=== PATIENT | female | born 1930 | race Caucasian/White ===

== ENCOUNTER 2017-05-21 09:08 | Emergency (ER) | payer OTHER ==
--- NOTE | 2017-05-21 09:12 | PDOC ---
History of Present Illness - General Chief Complaint: Injury Stated Complaint: FALL LACERATION TO RIGHT FOREHEAD SKIN TEAR - History of Present Illness Initial Comments: 05/21/17 09:48 87yo female with mechanical fall in the bathroom. Pt states she was getting up from the toilet, only using a cane, when she slipped on the floor. She was not using her walker and was not wearing socks and shoes. States she hit her head and her R elbow on the cabinet. States she did not have LOC. Pt with R wrist and R elbow pain. Pt with 3cm laceration without active bleeding to the R forehead. Pt denies neck or back pain. Denies cp/sob/n/v/d. No palpitations/ lightheaded or dizziness. Pt at baseline MS. Laguerre states the fall happened this AM. Tetanus vaccines is not UTD. Pt ambulated with her walker into the ED. PMHx: varicose veins, venous stasis, htn, dvt, hld Social: lives at home with daughter and granddaughter, has home health aide on /, no tobacco, etoh, drugs allergies: nkda 05/21/17 09:52 Past History - Past Medical History Allergies/Adverse Reactions: Allergies Allergy/AdvReac Type Severity Reaction Status Date / Time No Known Allergies Allergy Verified 05/21/17 09:10 Home Medications: Ambulatory Orders Aspirin [Aspir 81] 81 mg PO Q2D 07/09/12 Spironolactone 25 mg PO DAILY tablet 03/22/16 Oxybutynin Chloride [Oxybutynin Chloride ER] 5 mg PO DAILY 05/21/17 Anemia: No Asthma: No Cancer: No Cardiac Disorders: No CVA: No COPD: No CHF: No DVT: Yes Dementia: No Diabetes: No GI Disorders: No Disorders: No HTN: Yes Hypercholesterolemia: Yes Liver Disease: No Seizures: No Thyroid Disease: No - Surgical History Abdominal Surgery: No Appendectomy: Yes Cardiac Surgery: No Cholecystectomy: No Lung Surgery: No Neurologic Surgery: No Orthopedic Surgery: No - Suicide/Smoking/Psychosocial Hx Smoking History: Never smoked Cigars Per Day: 0 Hx Alcohol Use: No Drug/Substance Use Hx: No Substance Use Type: None Hx Substance Use Treatment: No Review of Systems - Review of Systems Able to Perform ROS?: Yes Is the patient limited Armenian proficient: No Constitutional: No: Chills, Fever HEENTM: No: Eye Pain, Blurred Vision, Nose Pain, Throat Pain Respiratory: No: Cough, Shortness of Breath Cardiac (ROS): No: Chest Pain, Irregular Heart Rate, Lightheadedness, Palpitations, Syncope, Chest Tightness ABD/GI: No: Diarrhea, Nausea, Vomiting : No: Burning, Dysuria Musculoskeletal: Yes: Joint Pain. No: Back Pain, Neck Pain Integumentary: Yes: Other (skin tear to R elbow, laceration to R forehead) Neurological: Yes: Unsteady Gait. No: Headache, Numbness, Paresthesia, Tingling , Weakness, Ataxia, Dizziness All Other Systems: Reviewed and Negative *Physical Exam - Vital Signs 05/21/17 09:54 Selected Entries 05/21/17 09:10 Temperature 97.6 F Pulse Rate 79 Respiratory 18 Rate Blood Pressure 146/72 O2 Sat by Pulse 98 Oximetry (%) Weight 53.524 kg - Physical Exam General Appearance: Yes: Nourished, Appropriately Dressed, Obese. No: Apparent Distress HEENT: positive: EOMI, HERIBERTO, Normal ENT Inspection. negative: Nasal Congestion , Rhinorrhea Neck: positive: Trachea midline, Supple. negative: Tender, Rigid, Decreased range of motion, Tender lateral, Tender midline Respiratory/Chest: positive: Lungs Clear, Normal Breath Sounds. negative: Chest Tender, Respiratory Distress Cardiovascular: positive: Regular Rhythm, Regular Rate, S1, S2 Gastrointestinal/Abdominal: positive: Normal Bowel Sounds, Soft. negative: Tender, Guarding, Rebound, Tenderness Musculoskeletal: negative: Decreased Range of Motion, Vertebral Tenderness Extremity: positive: Normal Capillary Refill, Normal Range of Motion, Pedal Edema, Swelling, Other (skin tear to R elbow, ttp over distal r radius, ecchymosis to distal r radius, FROM of wrist, no ttp over snuff box, radial pulses intact b/l, muscle strength 5/5 UE and LE, ambulates with her walker in the ed) Integumentary: positive: Normal Color, Dry, Warm, Other (laceration to R forehead ~3cm in length, skin tear to R elbow, ecchymosis to wrist over distal radius) Neurologic: positive: office electrician II-XII NML intact, Fully Oriented, Alert, Normal Response, Motor Strength 5/5. negative: EOM Palsy, Facial Droop, Numbness, Sensory Deficit Procedures - Bedside Ultrasound Bedside Ultrasound: Focused Assessment w/Sonography for Trauma Remarks: 05/21/17 09:57 No intraabd ff or pericardial effusion Heart Score/ECG Review - ECG Intrepretation Comment:: 05/21/17 11:13 sinus at 71, nl axis, nl interval, poor r wave progression, q waves septally that are age indeterminate, no acute st/t wave findings ED Treatment Course - LABORATORY CBC & Chemistry Diagram: 05/21/17 11:25 05/21/17 11:25 Medical Decision Making - Medical Decision Making 05/21/17 09:19 a/p: 87yo female on asa with closed head injury -no loc -neuro intact -will do bedside fast -mechanical slip and fall -will need laceration repair -will obtain xrays of elbow and wrist -head ct given asa use -will monitor and reassess 05/21/17 10:15 pt returned from imaging will repair laceration and pending radiology read of ct head and xrays 05/21/17 10:59 called by the radiologist - pt with small poss acute hemorrhage to the fissure discussed radiologist findings with the patient and her family - will need neurosurgical eval and neurology eval. family requests transfer to [facility]. call placed to [facility] transfer center. 05/21/17 11:13 pt does take asa qod - last took it sunday05/21/17 12:00 case discussed with neurosurg resident Maxwell who accepts pt in transfer to the ED under Dr. Stanley. Family updated transfer forms completed stable at the time of transfer [facility] arranging transportation 05/21/17 12:07 case discussed with the ED attending at [facility] - who will accept the patient in transfer pending DR. Stanley eval from neurosx 05/21/17 12:30 [facility]press arrived to transfer the patient. Pt stable at the time of transfer. Discussed all lab and imaging results with [facility] and the patient. *DC/Admit/Observation/Transfer Diagnosis at time of Disposition: Fall, Laceration of forehead, Skin tear, Intracerebral hemorrhage - Discharge Dispostion Disposition: TRANSFER ACUTE CARE/OTHER HOSP Condition at time of disposition: Stable - Referrals - Patient Instructions Printed Discharge Instructions: DI for Laceration Repair, DI for Closed Head Injury - Post Discharge Activity - Transfer to Acute Care Facility Receiving Facility: [facility] Accepting Physician:: Dr. Stanley
[2017-05-21] MEDS ORDERED: DIPHTH,PERTUSS(ACELL),TET 0.5 ML DISP.SYRIN IM ONE (09:19)
[2017-05-21 09:31] VITALS: TEMP 97.6; BMI 22.3
[2017-05-21] MEDS ORDERED: LIDOCAINE HCL 1%, 10 MG/ML (50 mL VIAL) SQ ONE (10:02)
[2017-05-21] MEDS ORDERED: LIDOCAINE HCL 1%, 10 MG/ML (20ML VIAL) ONE (10:03)
[2017-05-21] MEDS ORDERED: SODIUM CHLORIDE 0.9% 1000 ML INFUS.BAG IV ONE (11:02)
[2017-05-21 11:52] LABS: BASO % 0.4 % (0-2.0); EOS % 0.3 % (0-4.5); HEMATOCRIT 37.4 % (32.4-45.2); HEMOGLOBIN 12.2 GM/dl (10.7-15.3); LYMPH % 9.1 % (8-40); MCH 31.4 pg (25.7-33.7); MCHC 32.7 g/dl (32.0-36.0); MEAN CELL VOLUME 95.9 fl (80-96); MEAN PLT VOLUME 9.9 fl (7.5-11.1); MONO % 5.2 % (3.8-10.2); PLATELET COUNT 223 K/MM3 (134-434); RDW 14.6 % (11.6-15.6); WHITE BLOOD COUNT 10.1 K/mm3 (4.0-10.8)
[2017-05-21 12:01] LABS: ALBUMIN 3.4 g/dl (3.5-5.0); ALK PHOS 92 U/L (32-92); ANION GAP 7 (8-16); BILIRUBIN,TOTAL 0.3 mg/dl (0.2-1.0); BLOOD UREA NITROGEN 26 mg/dl (7-18); CALCIUM 9.4 mg/dl (8.4-10.2); CHLORIDE 103 mmol/L (98-107); CO2 24 mmol/L (22-28); CREATININE 1.3 mg/dl (0.6-1.3); GLUCOSE,RANDOM 109 mg/dl (74-106); POTASSIUM 4.6 mmol/L (3.5-5.1); SGOT/AST 22 U/L (10-42); SGPT/ALT 11 U/L (10-40); SODIUM 134 mmol/L (136-145)
[2017-05-21 12:02] LABS: ACTIVATED PTT 21.1 SECONDS (24.0-38.9)
[2017-05-21 12:05] VITALS: BP 133/63; PULSE 70
[2017-05-21 12:07] LABS: INR 1.06 (0.82-1.09); PROTHROMBIN TIME (PATIENT) 11.9 SEC (10.2-13.0)
--- NOTE | 2017-05-21 15:50 | EKG ---
Test Reason : Blood Pressure : / mmHG Vent. Rate : 071 BPM Atrial Rate : 071 BPM P-R Int : 180 ms QRS Dur : 068 ms QT Int : 358 ms P-R-T Axes : 049 -04 022 degrees QTc Int : 389 ms SINUS RHYTHM WITH PREMATURE ATRIAL COMPLEXES LOW VOLTAGE QRS NO PREVIOUS ECGS AVAILABLE Confirmed by KELLY METZ MD ([id number]) on 05/21/2017 3:49:49 PM Referred By: DENISSE AGUILAR Confirmed By:KELLY METZ MD
== END 2017-05-21 12:30 | disposition short-term general hospital (02) ==
LOC: FER 09:08
PROC: 3E0234Z Introduction of Serum, Toxoid and Vaccine into Muscle, Percutaneous Approach (ICD-10-PCS; principal; 2017-05-21)
PROC: 3E0337Z Introduction of Electrolytic and Water Balance Substance into Peripheral Vein, Percutaneous Approach (ICD-10-PCS; 2017-05-21)
PROC: 0HQ1XZZ Repair Face Skin, External Approach (ICD-10-PCS; 2017-05-21)
DX: I61.9 Nontraumatic intracerebral hemorrhage, unspecified (principal); S01.81XA Laceration without foreign body of other part of head, initial encounter; W18.39XA Other fall on same level, initial encounter; Y93.89 Activity, other specified; Y92.002 Bathroom of unspecified non-institutional (private) residence as the place of occurrence of the external cause; I10 Essential (primary) hypertension; Z86.718 Personal history of other venous thrombosis and embolism; Z79.82 Long term (current) use of aspirin; E78.5 Hyperlipidemia, unspecified
CPT/HCPCS: 36415; 70450-TC; 71045-TC; 73070-TC-RT; 73110-TC-RT; 80053; 85025; 85610; 85730; 86850; 86900; 86901; 90715; 93005; 99285-25

== ENCOUNTER 2017-11-17 15:26 | Observation (INO) | payer OTHER ==
[2017-11-17] MEDS ORDERED: SODIUM CHLORIDE 1,000 ML IV SCH (16:00)
--- NOTE | 2017-11-17 16:07 | PDOC ---
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 The patient states she felt nauseous yesterday and had two epsidoes of bilious, " "phlegm-like"" emesis. She states she felt better throughout the day, went to bed feeling well, but woke up around 2:30AM with numbness to her left arm. She states she went to grab her walker to walk to the bathroom, however, felt that her left arm was weaker than her right. She states she went back to sleep but was woken up several times because of persistent numbness and tingling. Pt states that the numbness and weakness have since resolved. However, she notes that she feels her left forearm and wrist is more swollen when compared to her right today. She reports mild pain to the proximal left wrist at the radial aspect. Denies any trauma to the area. She presents with her daughter and her granddaughter (RN from [facility]) for evaluation today. The patient denies chest pain, shortness of breath, headache and dizziness. The patient denies fever, chills, diarrhea and constipation. The patient denies dysuria, frequency, urgency and hematuria. Allergies: NKDA PCP - Dr. Troy Manager Spring: Dr. Bravo" <Allan Ashton - Last Filed: 11/17/17 18:58> - General Chief Complaint: CVA/TIA Stated Complaint: EPISODE OF LEFT ARM TINGLING Time Seen by Provider: 11/17/17 15:28 NIH Stroke Scale - Last Known Well Date/Time & Onset Date Last Known Well: 11/16/17 Time Last Known Well: 22:00 - Initial Evaluation Level of consciousness: Alert Ask patient the month and their age: Answers both correctly Ask patient to open & close eyes; make fist and let go: Obeys both correctly Best gaze (horizontal eye movement): Normal Visual field testing: No visual field loss Facial paresis (Show teeth/raise eyebrows/close eyes tight): Normal symmetrical movement Motor Function: Left Arm: Normal Motor Function: Right Arm: Normal (extends arm 90 (or 45) degrees for 10 seconds without drift Motor Function: Left Leg: Normal (extends leg 30 degrees for 5 seconds without drift) Motor Function: Right Leg: Normal (extends leg 30 degrees for 5 seconds without drift) Limb Ataxia: No ataxia Sensory(Use pinprick test arms,legs,trunk,face/side to side): Normal Best language (Describe picture, name items, read sentences): No Aphasia Dysarthria (read several words): Normal articulation Extinction and Inattention: No abnormality - Total Score NIH Stroke Scale Score: 0 <Allan Ashton - Last Filed: 11/17/17 18:58> Past History <Jacki Gonzales - Last Filed: 11/17/17 17:15> - Past Medical History Anemia: No Asthma: No Cancer: No Cardiac Disorders: No CVA: No COPD: No CHF: No DVT: Yes Dementia: No Diabetes: No GI Disorders: No Disorders: Yes HTN: Yes Hypercholesterolemia: Yes Liver Disease: No Seizures: No Thyroid Disease: No - Surgical History Abdominal Surgery: No Appendectomy: Yes Cardiac Surgery: No Cholecystectomy: No Lung Surgery: No Neurologic Surgery: No Orthopedic Surgery: No - Immunization History Immunization Up to Date: No - Suicide/Smoking/Psychosocial Hx Smoking History: Never smoked Have you smoked in the past 12 months: No Cigars Per Day: 0 Hx Alcohol Use: No Drug/Substance Use Hx: No Substance Use Type: None Hx Substance Use Treatment: No <Allan Ashton - Last Filed: 11/17/17 18:58> - Past Medical History Allergies/Adverse Reactions: Allergies Allergy/AdvReac Type Severity Reaction Status Date / Time No Known Allergies Allergy Verified 11/17/17 15:41 Home Medications: Ambulatory Orders Aspirin [Aspir 81] 81 mg PO TUTH 07/09/12 Spironolactone 25 mg PO DAILY tablet 03/22/16 Escitalopram Oxalate [Lexapro -] 20 mg PO DAILY 11/17/17 Oxybutynin Chloride [Oxybutynin Chloride ER] 10 mg PO DAILY 11/17/17 Simvastatin [Zocor -] 20 mg PO HS 11/17/17 Review of Systems - Review of Systems Comments:: 11/17/17 16:17 """GENERAL/CONSTITUTIONAL: No fever or chills. No weakness. HEAD, EYES, EARS, NOSE AND THROAT: No change in vision. No ear pain or discharge. No sore throat. CARDIOVASCULAR: No chest pain or shortness of breath. RESPIRATORY: No cough, wheezing, or hemoptysis. GASTROINTESTINAL: No nausea, vomiting, diarrhea or constipation. GENITOURINARY: No dysuria, frequency, or change in urination. MUSCULOSKELETAL: (+) left forearm and wrist swelling. No neck or back pain. SKIN: No rash NEUROLOGIC: (+) left arm numbness and weakness. No headache, vertigo, loss of consciousness,. ENDOCRINE: No increased thirst. No abnormal weight change. HEMATOLOGIC/LYMPHATIC: No anemia, easy bleeding, or history of blood clots. ALLERGIC/IMMUNOLOGIC: No hives or skin allergy. """ <Allan Ashton - Last Filed: 11/17/17 18:58> *Physical Exam - Vital Signs Last Vital Signs Temp Pulse Resp BP Pulse Ox 98.6 F 73 18 130/66 95 11/17/17 15:27 11/17/17 15:27 11/17/17 15:27 11/17/17 15:27 11/17/17 15:27 <Jacki Gonzales - Last Filed: 11/17/17 17:15> - Vital Signs Last Vital Signs Temp Pulse Resp BP Pulse Ox 98.6 F 73 18 130/66 95 11/17/17 15:27 11/17/17 15:27 11/17/17 15:27 11/17/17 15:27 11/17/17 15:27 - Physical Exam Comments: 11/17/17 16:17 """GENERAL: Awake, alert, and fully oriented, in no acute distress. HEAD: No signs of trauma EYES: PERRLA, EOMI, sclera anicteric, conjunctiva clear ENT: Auricles normal inspection, hearing grossly normal, nares patent, oropharynx clear without exudates. Moist mucosa NECK: Nontender, no stepoffs, Normal ROM, supple, no lymphadenopathy, JVD, or masses LUNGS: Breath sounds equal, clear to auscultation bilaterally. No wheezes, and no crackles HEART: Regular rate and rhythm, normal S1 and S2, no murmurs, rubs or gallops ABDOMEN: Soft, nontender, normoactive bowel sounds. No guarding, no rebound. No masses EXTREMITIES: + LUE swelling, distal pulses intact, Normal range of motion, No clubbing or cyanosis. No cords, erythema, or tenderness NEUROLOGICAL: Cranial nerves II through XII intact. 5/5 strength and sensation in all extremities, Normal speech, normal gait, normal cerebellar function SKIN: Warm, Dry, normal turgor, no rashes or lesions noted. """ <Allan Ashton - Last Filed: 11/17/17 18:58> ED Treatment Course - LABORATORY CBC & Chemistry Diagram: 11/17/17 16:05 11/17/17 16:05 - ADDITIONAL ORDERS Additional order review: Laboratory Results 11/17/17 11/17/17 16:05 16:05 Sodium 129 L Potassium 4.0 Chloride 97 L Carbon Dioxide 24 Anion Gap 8 BUN 26 H Creatinine 1.3 Creat Clearance w eGFR 38.84 Random Glucose 94 Calcium 9.1 AST 16 ALT 10 Alkaline Phosphatase 81 Creatine Kinase 22 L Troponin I < 0.03 Total Protein 6.7 Albumin 3.3 L Triglycerides 75 D Cholesterol 107 HDL Cholesterol 39 11/17/17 16:05 RBC 3.79 MCV 92.2 MCHC 33.4 RDW 15.4 MPV 8.7 Neutrophils % 67.6 Lymphocytes % 15.6 Monocytes % 15.2 H Eosinophils % 1.1 Basophils % 0.5 - RADIOLOGY Radiograph Interpretation: 11/17/17 17:15 EXAM#: TYPE/EXAM: RESULT: [id number] CT/HEAD CT (STROKE) HISTORY PROVIDED: Rule out CVA TECHNIQUE: Sequential axial images were obtained from the base of the skull to the vertex. There is no evidence of acute intracranial hemorrhage, mass lesions or infarctions. There is a moderate degree of diffuse cerebral atrophy with sulcal widening and ventricular dilatation. There are hypodense changes within the periventricular white matter consistent with chronic, small vessel ischemia. There is no evidence of fracture or acute bony abnormalities. There is no significant change since a prior study of 06/01/2017. IMPRESSION: No evidence of acute intracranial pathology. Reported By: José Miguel Chavez MD 11/17/17 [id number] <Jacki Gonzales - Last Filed: 11/17/17 17:15> - LABORATORY CBC & Chemistry Diagram: 11/17/17 16:05 11/17/17 16:05 - RADIOLOGY Radiology Studies Ordered: Category Date Time Status HEAD CT (STROKE) [CT] Stat CT Scan 11/17/17 15:52 Ordered DUPLEX VASCUL US-1 ARM [US] Stat Ultrasound 11/17/17 15:52 Ordered <Allan Ashton - Last Filed: 11/17/17 18:58> Medical Decision Making - Critical Care Time Total Critical Care Time (minutes): 45 Critical Care Statement: The care of this patient involved high complexity decision making to prevent further life threatening deterioration of the patient 's condition and/or to evaluate & treat vital organ system(s) failure or risk of failure. - Medical Decision Making 11/17/17 16:02 87 F with L arm numbness and weakness since 2am today. Concerning for possible CVA vs TIA. Pt now neurologically non-focal. NIHSS 0. Pt also with unilateral LUE swelling, concerning for possible DVT, as pt has h/o BLE DVTs no longer on anticoagulation. - Labs - CT head - US LUE - Neuro consult - Likely admit 11/17/17 18:31 CTH unremarkable Labs notable for UTI Ceftriaxone ordered Spoke with Dr. Gray, neuro consult, who recommends MRI and admission Pt admitted to hospitalist. <Allan Ashton - Last Filed: 11/17/17 18:58> *DC/Admit/Observation/Transfer <Jacki Gonzales - Last Filed: 11/17/17 17:15> - Discharge Dispostion Decision to Admit order: Yes - Attestations Physician Attestion: 11/17/17 18:30 I, Dr. Allan Ashton MD, attest that this document has been prepared under my direction and personally reviewed by me in its entirety. I further attest, that it accurately reflects all work, treatment, procedures and medical decision -making performed by me. <Allan Ashton - Last Filed: 11/17/17 18:58> Diagnosis at time of Disposition: Left arm weakness, Left arm numbness, Left arm swelling - Discharge Dispostion Condition at time of disposition: Good - Referrals Referrals: Chase Troy MD [Primary Care Provider] - - Patient Instructions - Post Discharge Activity
[2017-11-17 16:43] LABS: BASO % 0.5 % (0-2.0); EOS % 1.1 % (0-4.5); HEMOGLOBIN 11.7 GM/dl (10.7-15.3); LYMPH % 15.6 % (8-40); MCH 30.8 pg (25.7-33.7); MCHC 33.4 g/dl (32.0-36.0); MEAN CELL VOLUME 92.2 fl (80-96); MEAN PLT VOLUME 8.7 fl (7.5-11.1); MONO % 15.2 % (3.8-10.2); NEUT % 67.6 % (42.8-82.8); PLATELET COUNT 226 K/MM3 (134-434); RBC 3.79 M/mm3 (3.60-5.2); RDW 15.4 % (11.6-15.6); WHITE BLOOD COUNT 7.9 K/mm3 (4.0-10.8)
[2017-11-17 17:09] LABS: ALBUMIN 3.3 g/dl (3.5-5.0); ALK PHOS 81 U/L (32-92); ANION GAP 8 (8-16); BLOOD UREA NITROGEN 26 mg/dl (7-18); CALCIUM 9.1 mg/dl (8.4-10.2); CHLORIDE 97 mmol/L (98-107); CHOLESTEROL 107 mg/dl; CO2 24 mmol/L (22-28); CREATININE 1.3 mg/dl (0.6-1.3); GLUCOSE,RANDOM 94 mg/dl (74-106); HDL CHOLESTEROL 39 mg/dl (29-89); SGOT/AST 16 U/L (10-42); SGPT/ALT 10 U/L (10-40); SODIUM 129 mmol/L (136-145); TOT PROT 6.7 g/dl (6.4-8.3); TRIGLYCERIDES 75 mg/dl (35-160)
[2017-11-17 17:21] LABS: INR 1.13 (0.82-1.09); PROTHROMBIN TIME (PATIENT) 12.6 SEC (10.2-13.0)
[2017-11-17 17:42] LABS: URINE APPEARANCE Slightly; URINE BILIRUBIN Negative (NEGATIVE); URINE COLOR Yellow; URINE GLUCOSE (UA) Negative (NEGATIVE); URINE KETONE Negative (NEGATIVE); URINE LEUK ESTERASE 2+ (NEGATIVE); URINE NITRITE Positive (NEGATIVE); URINE PROTEIN Negative (NEGATIVE); URINE UROBILINOGEN 0.2 (0.2-1.0)
[2017-11-17 18:01] LABS: URINE BACTERIA MANY /hpf (NEGATIVE); URINE WBC 50-80 (0-5)
[2017-11-17 18:14] LABS: BILIRUBIN,TOTAL 0.8 mg/dl (0.2-1.0)
[2017-11-17] MEDS ORDERED: CEFTRIAXONE 1,000 MG in DEXTROSE 5%-WATER - 50 ML IVPB ONE (18:31)
[2017-11-17] MEDS ORDERED: cefTRIAXone SODIUM 1 GM VIAL ONE (19:14)
--- NOTE | 2017-11-17 20:41 | CON.NEURO ---
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 The patient states she felt nauseous yesterday and had two epsidoes of bilious, " "phlegm-like"" emesis, denies vertigo. She states she felt better throughout the day, went to bed feeling well, but woke up around 2:30AM with numbness in her left arm forearm only. She states she went to grab her walker to walk to the bathroom, however, felt that her left arm was weaker than her right, denies weakness now. She states she went back to sleep but was woken up several times because of persistent numbness and tingling. Pt states that the numbness and weakness have since resolved. However, she notes that she feels her left forearm and wrist is more swollen when compared to her right today. She reports mild pain to the proximal left wrist at the radial aspect. Denies any trauma to the area. She presents with her daughter and her granddaughter (RN from [facility]) for evaluation today. The patient denies chest pain, shortness of breath, headache and dizziness. The patient denies fever, chills, diarrhea and constipation. The patient denies dysuria, frequency, urgency and hematuria. + hx of right cerebral hge. in 05/24 after a fall, she has been ambulating with walker since late last year due to unsteady gait. Denies all other neurologic symptoms. - Alcohol/Substance Use Hx Alcohol Use: No - Smoking History Smoking history: Never smoked Have you smoked in the past 12 months: No Home Medications - Allergies Allergies/Adverse Reactions: Allergies Allergy/AdvReac Type Severity Reaction Status Date / Time No Known Allergies Allergy Verified 11/17/17 15:41 - Home Medications Home Medications: Ambulatory Orders Aspirin [Aspir 81] 81 mg PO TUTH 07/09/12 Spironolactone 25 mg PO DAILY tablet 03/22/16 Escitalopram Oxalate [Lexapro -] 20 mg PO DAILY 11/17/17 Oxybutynin Chloride [Oxybutynin Chloride ER] 10 mg PO DAILY 11/17/17 Simvastatin [Zocor -] 20 mg PO HS 11/17/17 Physical Exam-Neuro Vital Signs: Vital Signs Temperature 98.6 F 11/17/17 15:27 Pulse Rate 73 11/17/17 15:27 Respiratory Rate 18 11/17/17 15:27 Blood Pressure 130/66 11/17/17 15:27 O2 Sat by Pulse Oximetry (%) 95 11/17/17 15:27 Labs: CBC, BMP 11/17/17 16:05 11/17/17 16:05 INR, PTT INR 1.13 (0.82-1.09) 11/17/17 16:05 - Neuro Exam Level Of Consciousness: Yes: Alert, Oriented to Person, Oriented to Place, Oriented to Time Eyes: Yes: HERIBERTO Speech: WNL Dominant Hand: Right Mini Mental Exam: Normal DTR's: 1+ Left Tricep, 1+ Right Tricep, 1+ Right Brachioradialis, 2+ Left Bicep , 2+ Right Achilles, 3+ Left Achilles (+left ankle clonus) Imaging - Results Cat Scan: Report Reviewed (Moderate diffuse cerebral atrophy, small amount of diffuse cerebral atrophy) Other: Report Reviewed (UE Doppler-no DVT) Assessment/Plan Pt. with hx. of DVT, gait d/o,now with transient left arm numbness??weakness. Likely right subcortical lacunar ischemic event, no evid. of DVT LUE unclear cause of swelling. She takes ASA every other day, would change to Aggrenox 1 daily for now and obtain MRI brain. If MRI without evid. of ischemic event would look in Cspine as outpt. B12 level. Thank you, Radha Gray MD
[2017-11-17] MEDS ORDERED: ASPIRIN/DIPYRIDAMOLE 25 MG/200 MG CAPSULE (FP) PO ONE (21:00)
[2017-11-17] MEDS ORDERED: ATORVASTATIN CA 10 MG TABLET (FP) PO SCH (22:00)
[2017-11-17 23:20] VITALS: TEMP 97.8; BMI 33.6
[2017-11-17] MEDS ORDERED: ESCITALOPRAM OXALATE 20 MG TABLET (FP) PO ONE (23:45)
[2017-11-17] MEDS ORDERED: ESCITALOPRAM OXALATE 20 MG TABLET (FP) PO SCH (23:45)
[2017-11-17] MEDS ORDERED: OXYBUTYNIN CHLORIDE 5 MG TABLET PO STA (23:55)
[2017-11-18 06:09] VITALS: BP 119/45; PULSE 66
--- NOTE | 2017-11-18 07:44 | HP ---
CHIEF COMPLAINT: PCP: Dr. Troy (PCP), Dr. Suarez (vascular) HISTORY OF PRESENT ILLNESS: ER course was notable for: (1) hmg/hct 10.4/31.3, hyponatremia 132, lipid panel reviewed (2) leuk est +2 (3) Recent Travel: PAST MEDICAL HISTORY: PAST SURGICAL HISTORY: Social History: Smoking: Alcohol: Drugs: Family History: Allergies No Known Allergies Allergy (Verified 11/17/17 15:41) HOME MEDICATIONS: Home Medications Medication Instructions Recorded Aspirin [Aspir 81] 81 mg PO TUTH 07/09/12 Spironolactone 25 mg PO DAILY tablet 03/22/16 Escitalopram Oxalate [Lexapro -] 20 mg PO DAILY 11/17/17 Oxybutynin Chloride [Oxybutynin 10 mg PO DAILY 11/17/17 Chloride ER] Simvastatin [Zocor -] 20 mg PO HS 11/17/17 REVIEW OF SYSTEMS CONSTITUTIONAL: Absent: fever, chills, diaphoresis, generalized weakness, malaise, loss of appetite, weight change HEENT: Absent: rhinorrhea, nasal congestion, throat pain, throat swelling, difficulty swallowing, mouth swelling, ear pain, eye pain, visual changes CARDIOVASCULAR: Absent: chest pain, syncope, palpitations, irregular heart rate, lightheadedness , peripheral edema RESPIRATORY: Absent: cough, shortness of breath, dyspnea with exertion, orthopnea, wheezing, stridor, hemoptysis GASTROINTESTINAL: Absent: abdominal pain, abdominal distension, nausea, vomiting, diarrhea, constipation, melena, hematochezia GENITOURINARY: Absent: dysuria, frequency, urgency, hesitancy, hematuria, flank pain, genital pain MUSCULOSKELETAL: Absent: myalgia, arthralgia, joint swelling, back pain, neck pain SKIN: Absent: rash, itching, pallor HEMATOLOGIC/IMMUNOLOGIC: Absent: easy bleeding, easy bruising, lymphadenopathy, frequent infections ENDOCRINE: Absent: unexplained weight gain, unexplained weight loss, heat intolerance, cold intolerance NEUROLOGIC: Absent: headache, focal weakness or paresthesias, dizziness, unsteady gait, seizure, mental status changes, bladder or bowel incontinence PSYCHIATRIC: Absent: anxiety, depression, suicidal or homicidal ideation, hallucinations. PHYSICAL EXAMINATION Vital Signs - 24 hr 11/17/17 11/17/17 11/18/17 15:27 22:51 06:08 Temperature 98.6 F 97.8 F 97.8 F Pulse Rate 73 72 66 Respiratory 18 18 18 Rate Blood Pressure 130/66 135/55 119/45 O2 Sat by Pulse 95 98 Oximetry (%) GENERAL: Awake, alert, and fully oriented, in no acute distress. HEAD: Normal with no signs of trauma. EYES: Pupils equal, round and reactive to light, extraocular movements intact, sclera anicteric, conjunctiva clear. No lid lag. EARS, NOSE, THROAT: Ears normal, nares patent, oropharynx clear without exudates. Moist mucous membranes. NECK: Normal range of motion, supple without lymphadenopathy, JVD, or masses. LUNGS: Breath sounds equal, clear to auscultation bilaterally. No wheezes, and no crackles. No accessory muscle use. HEART: Regular rate and rhythm, normal S1 and S2 without murmur, rub or gallop. ABDOMEN: Soft, nontender, not distended, normoactive bowel sounds, no guarding, no rebound, no masses. No hepatomegaly or splenomegaly. MUSCULOSKELETAL: Normal range of motion at all joints. No bony deformities or tenderness. No CVA tenderness. UPPER EXTREMITIES: 2+ pulses, warm, well-perfused. No cyanosis. No clubbing. No peripheral edema. LOWER EXTREMITIES: 2+ pulses, warm, well-perfused. No calf tenderness. No peripheral edema. NEUROLOGICAL: Cranial nerves II-XII intact. Normal speech. Normal gait. PSYCHIATRIC: Cooperative. Good eye contact. Appropriate mood and affect. SKIN: Warm, dry, normal turgor, no rashes or lesions noted, normal capillary refill. Laboratory Results - last 24 hr 11/17/17 11/17/17 11/17/17 16:05 16:05 16:05 WBC 7.9 RBC 3.79 Hgb 11.7 Hct 35.0 MCV 92.2 MCH 30.8 MCHC 33.4 RDW 15.4 Plt Count 226 MPV 8.7 Absolute Neuts (auto) 5.4 Neutrophils % 67.6 Lymphocytes % 15.6 Monocytes % 15.2 H Eosinophils % 1.1 Basophils % 0.5 PT with INR 12.6 INR 1.13 Sodium 129 L Potassium 4.0 Chloride 97 L Carbon Dioxide 24 Anion Gap 8 BUN 26 H Creatinine 1.3 Creat Clearance w eGFR 38.84 Random Glucose 94 Calcium 9.1 Total Bilirubin 0.8 AST 16 ALT 10 Alkaline Phosphatase 81 Creatine Kinase 22 L Troponin I Total Protein 6.7 Albumin 3.3 L Triglycerides 75 D Cholesterol 107 Total LDL Cholesterol 53 HDL Cholesterol 39 Urine Color Urine Appearance Urine pH Ur Specific [place] Urine Protein Urine Glucose (UA) Urine Ketones Urine Blood Urine Nitrite Urine Bilirubin Urine Urobilinogen Ur Leukocyte Esterase Urine RBC Urine WBC Ur Epithelial Cells Urine Bacteria Blood Type Antibody Screen 11/17/17 11/17/17 11/17/17 16:05 16:05 17:05 WBC RBC Hgb Hct MCV MCH MCHC RDW Plt Count MPV Absolute Neuts (auto) Neutrophils % Lymphocytes % Monocytes % Eosinophils % Basophils % PT with INR INR Sodium Potassium Chloride Carbon Dioxide Anion Gap BUN Creatinine Creat Clearance w eGFR Random Glucose Calcium Total Bilirubin AST ALT Alkaline Phosphatase Creatine Kinase Troponin I < 0.03 Total Protein Albumin Triglycerides Cholesterol Total LDL Cholesterol HDL Cholesterol Urine Color Yellow Urine Appearance Slightly Urine pH 5.0 Ur Specific [place] <= 1.005 Urine Protein Negative Urine Glucose (UA) Negative Urine Ketones Negative Urine Blood Trace-lysed H Urine Nitrite Positive Urine Bilirubin Negative Urine Urobilinogen 0.2 Ur Leukocyte Esterase 2+ H Urine RBC 3-5 Urine WBC 50-80 Ur Epithelial Cells 3-5 Urine Bacteria Many Blood Type B POSITIVE Antibody Screen Negative ASSESSMENT/PLAN: Hospitalist Screening - Colonoscopy Questionnaire Colonoscopy Questionnaire: Colonoscopy Questionnaire
[2017-11-18 09:49] LABS: HEMATOCRIT 31.3 % (32.4-45.2); HEMOGLOBIN 10.4 GM/dl (10.7-15.3); MCHC 33.3 g/dl (32.0-36.0); MEAN CELL VOLUME 93.1 fl (80-96); PLATELET COUNT 199 K/MM3 (134-434); RBC 3.36 M/mm3 (3.60-5.2); RDW 15.1 % (11.6-15.6); WHITE BLOOD COUNT 7.5 K/mm3 (4.0-10.8)
[2017-11-18] MEDS ORDERED: OXYBUTYNIN CHLORIDE 5 MG TABLET PO SCH ×2 (10:00→22:00)
[2017-11-18] MEDS ORDERED: CEFTRIAXONE 1 GM/50 ML BAG IVPB SCH (10:00)
[2017-11-18] MEDS ORDERED: SPIRONOLACTONE 25 MG TABLET (FP) PO SCH (10:00)
[2017-11-18] MEDS ORDERED: PANTOPRAZOLE 20 MG TABLET (FP) PO SCH (10:00)
[2017-11-18] MEDS ORDERED: ESCITALOPRAM OXALATE 20 MG TABLET (FP) PO SCH ×2 (10:00)
[2017-11-18] MEDS ORDERED: LOSARTAN POTASSIUM 50 MG TABLET (FP) PO SCH (10:00)
[2017-11-18 10:09] LABS: ALBUMIN 2.7 g/dl (3.5-5.0); ALK PHOS 65 U/L (32-92); ANION GAP 4 (8-16); BILIRUBIN,TOTAL 0.8 mg/dl (0.2-1.0); BLOOD UREA NITROGEN 21 mg/dl (7-18); CALCIUM 8.7 mg/dl (8.4-10.2); CHLORIDE 102 mmol/L (98-107); CO2 26 mmol/L (22-28); CREATININE 1.2 mg/dl (0.6-1.3); GLUCOSE,RANDOM 79 mg/dl (74-106); SGOT/AST 13 U/L (10-42); SODIUM 132 mmol/L (136-145); TOT PROT 5.6 g/dl (6.4-8.3)
[2017-11-18 10:59] LABS: SGPT/ALT < 8 U/L (10-40)
--- NOTE | 2017-11-18 14:18 | EKG ---
Test Reason : Blood Pressure : / mmHG Vent. Rate : 061 BPM Atrial Rate : 061 BPM P-R Int : 146 ms QRS Dur : 090 ms QT Int : 408 ms P-R-T Axes : 044 -11 022 degrees QTc Int : 410 ms POOR DATA QUALITY, INTERPRETATION MAY BE ADVERSELY AFFECTED NORMAL SINUS RHYTHM LOW VOLTAGE QRS NONSPECIFIC ST ABNORMALITY ABNORMAL ECG WHEN COMPARED WITH ECG OF 21-MAY-2017 11:10, PREMATURE ATRIAL COMPLEXES ARE NO LONGER PRESENT QUESTIONABLE CHANGE IN QRS DURATION CRITERIA FOR SEPTAL INFARCT ARE NO LONGER PRESENT Confirmed by Tae Saenz ([id number]) on 11/18/2017 2:18:25 PM Referred By: KAT Confirmed By:Tae Saenz
--- NOTE | 2017-11-18 15:26 | PN ---
Progress Note (short form) - Note Progress Note: Pt. reports feeling better, no paresthesias/arm pain. Her exam remains unchanged. MRI brain- without acute abn.+cerebral and cerebellar volume loss, small amount of PVWMD. 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 Cont. Aggrenox 1 tab Mon/Wed/Fri. Plan-d/c home today, will arrange MRI cspine and carotid doppler study as out pt. Pts. daughter will call to set up appt. in my office. Radha Gray MD
--- NOTE | 2017-11-18 15:55 | DS ---
Physical Exam: SUBJECTIVE: Patient seen and examined OBJECTIVE: Vital Signs Period Temp Pulse Resp BP Sys/Smith Pulse Ox Last 24 Hr 97.8 F-97.8 F 66-72 18-18 119-135/45-55 98 PHYSICAL EXAM GENERAL: The patient is awake, alert, and fully oriented, in no acute distress. HEAD: Normal with no signs of trauma. EYES: PERRL, extraocular movements intact, sclera anicteric, conjunctiva clear. ENT: Ears normal, nares patent, oropharynx clear without exudates, moist mucous membranes. NECK: Trachea midline, full range of motion, supple. LUNGS: Breath sounds equal, clear to auscultation bilaterally, no wheezes, no crackles, no accessory muscle use. HEART: Regular rate and rhythm, S1, S2 without murmur, rub or gallop. ABDOMEN: Soft, nontender, nondistended, normoactive bowel sounds, no guarding, no rebound, no hepatosplenomegaly, no masses. EXTREMITIES: 2+ pulses, warm, well-perfused, no edema. NEUROLOGICAL: Cranial nerves II through XII grossly intact. Normal speech, gait not observed. PSYCH: Normal mood, normal affect. SKIN: Warm, dry, normal turgor, no rashes or lesions noted. LABS Laboratory Results - last 24 hr 11/17/17 11/17/17 11/17/17 16:05 16:05 16:05 WBC 7.9 RBC 3.79 Hgb 11.7 Hct 35.0 MCV 92.2 MCH 30.8 MCHC 33.4 RDW 15.4 Plt Count 226 MPV 8.7 Absolute Neuts (auto) 5.4 Neutrophils % 67.6 Lymphocytes % 15.6 Monocytes % 15.2 H Eosinophils % 1.1 Basophils % 0.5 PT with INR 12.6 INR 1.13 Sodium 129 L Potassium 4.0 Chloride 97 L Carbon Dioxide 24 Anion Gap 8 BUN 26 H Creatinine 1.3 Creat Clearance w eGFR 38.84 Random Glucose 94 Calcium 9.1 Total Bilirubin 0.8 AST 16 ALT 10 Alkaline Phosphatase 81 Creatine Kinase 22 L Troponin I Total Protein 6.7 Albumin 3.3 L Triglycerides 75 D Cholesterol 107 Total LDL Cholesterol 53 HDL Cholesterol 39 Urine Color Urine Appearance Urine pH Ur Specific [place] Urine Protein Urine Glucose (UA) Urine Ketones Urine Blood Urine Nitrite Urine Bilirubin Urine Urobilinogen Ur Leukocyte Esterase Urine RBC Urine WBC Ur Epithelial Cells Urine Bacteria Blood Type Antibody Screen 11/17/17 11/17/17 11/17/17 16:05 16:05 17:05 WBC RBC Hgb Hct MCV MCH MCHC RDW Plt Count MPV Absolute Neuts (auto) Neutrophils % Lymphocytes % Monocytes % Eosinophils % Basophils % PT with INR INR Sodium Potassium Chloride Carbon Dioxide Anion Gap BUN Creatinine Creat Clearance w eGFR Random Glucose Calcium Total Bilirubin AST ALT Alkaline Phosphatase Creatine Kinase Troponin I < 0.03 Total Protein Albumin Triglycerides Cholesterol Total LDL Cholesterol HDL Cholesterol Urine Color Yellow Urine Appearance Slightly Urine pH 5.0 Ur Specific [place] <= 1.005 Urine Protein Negative Urine Glucose (UA) Negative Urine Ketones Negative Urine Blood Trace-lysed H Urine Nitrite Positive Urine Bilirubin Negative Urine Urobilinogen 0.2 Ur Leukocyte Esterase 2+ H Urine RBC 3-5 Urine WBC 50-80 Ur Epithelial Cells 3-5 Urine Bacteria Many Blood Type B POSITIVE Antibody Screen Negative 11/18/17 11/18/17 06:10 06:10 WBC 7.5 RBC 3.36 L Hgb 10.4 L Hct 31.3 L MCV 93.1 MCH 31.0 MCHC 33.3 RDW 15.1 Plt Count 199 MPV 9.0 Absolute Neuts (auto) Neutrophils % Lymphocytes % Monocytes % Eosinophils % Basophils % PT with INR INR Sodium 132 L Potassium 4.0 Chloride 102 Carbon Dioxide 26 Anion Gap 4 L BUN 21 H Creatinine 1.2 Creat Clearance w eGFR 42.60 Random Glucose 79 Calcium 8.7 Total Bilirubin 0.8 AST 13 ALT < 8 L D Alkaline Phosphatase 65 D Creatine Kinase Troponin I Total Protein 5.6 L Albumin 2.7 L Triglycerides Cholesterol Total LDL Cholesterol HDL Cholesterol Urine Color Urine Appearance Urine pH Ur Specific [place] Urine Protein Urine Glucose (UA) Urine Ketones Urine Blood Urine Nitrite Urine Bilirubin Urine Urobilinogen Ur Leukocyte Esterase Urine RBC Urine WBC Ur Epithelial Cells Urine Bacteria Blood Type Antibody Screen HOSPITAL COURSE: Date of Admission:11/17/17 Date of Discharge: 11/18/17 Discharge Summary Reason For Visit: MUSCLE WEAKNESS (GENERALIZED),URINARY TRACT INFECT Current Active Problems Left arm numbness (Acute) Left arm swelling (Acute) Left arm weakness (Acute) Condition: Good - Instructions Referrals: Chase Troy MD [Primary Care Provider] - - Home Medications Comprehensive Discharge Medication List: Ambulatory Orders Aspirin [Aspir 81] 81 mg PO TUTH 07/09/12 Spironolactone 25 mg PO DAILY tablet 03/22/16 Escitalopram Oxalate [Lexapro -] 20 mg PO DAILY 11/17/17 Oxybutynin Chloride [Oxybutynin Chloride ER] 10 mg PO DAILY 11/17/17 Simvastatin [Zocor -] 20 mg PO HS 11/17/17
--- NOTE | 2017-11-18 16:11 | DS ---
Physical Exam: SUBJECTIVE: Patient seen and examined OBJECTIVE: Vital Signs Period Temp Pulse Resp BP Sys/Smith Pulse Ox Last 24 Hr 97.8 F-97.8 F 66-72 18-18 119-135/45-55 98 PHYSICAL EXAM GENERAL: The patient is awake, alert, and fully oriented, in no acute distress. HEAD: Normal with no signs of trauma. EYES: PERRL, extraocular movements intact, sclera anicteric, conjunctiva clear. ENT: Ears normal, nares patent, oropharynx clear without exudates, moist mucous membranes. NECK: Trachea midline, full range of motion, supple. LUNGS: Breath sounds equal, clear to auscultation bilaterally, no wheezes, no crackles, no accessory muscle use. HEART: Regular rate and rhythm, S1, S2 without murmur, rub or gallop. ABDOMEN: Soft, nontender, nondistended, normoactive bowel sounds, no guarding, no rebound, no hepatosplenomegaly, no masses. EXTREMITIES: 2+ pulses, warm, well-perfused, no edema. NEUROLOGICAL: Cranial nerves II through XII grossly intact. Normal speech, gait not observed. PSYCH: Normal mood, normal affect. SKIN: Warm, dry, normal turgor, no rashes or lesions noted. LABS Laboratory Results - last 24 hr 11/17/17 11/17/17 11/17/17 16:05 16:05 16:05 WBC 7.9 RBC 3.79 Hgb 11.7 Hct 35.0 MCV 92.2 MCH 30.8 MCHC 33.4 RDW 15.4 Plt Count 226 MPV 8.7 Absolute Neuts (auto) 5.4 Neutrophils % 67.6 Lymphocytes % 15.6 Monocytes % 15.2 H Eosinophils % 1.1 Basophils % 0.5 PT with INR 12.6 INR 1.13 Sodium 129 L Potassium 4.0 Chloride 97 L Carbon Dioxide 24 Anion Gap 8 BUN 26 H Creatinine 1.3 Creat Clearance w eGFR 38.84 Random Glucose 94 Calcium 9.1 Total Bilirubin 0.8 AST 16 ALT 10 Alkaline Phosphatase 81 Creatine Kinase 22 L Troponin I Total Protein 6.7 Albumin 3.3 L Triglycerides 75 D Cholesterol 107 Total LDL Cholesterol 53 HDL Cholesterol 39 Urine Color Urine Appearance Urine pH Ur Specific [place] Urine Protein Urine Glucose (UA) Urine Ketones Urine Blood Urine Nitrite Urine Bilirubin Urine Urobilinogen Ur Leukocyte Esterase Urine RBC Urine WBC Ur Epithelial Cells Urine Bacteria Blood Type Antibody Screen 11/17/17 11/17/17 11/17/17 16:05 16:05 17:05 WBC RBC Hgb Hct MCV MCH MCHC RDW Plt Count MPV Absolute Neuts (auto) Neutrophils % Lymphocytes % Monocytes % Eosinophils % Basophils % PT with INR INR Sodium Potassium Chloride Carbon Dioxide Anion Gap BUN Creatinine Creat Clearance w eGFR Random Glucose Calcium Total Bilirubin AST ALT Alkaline Phosphatase Creatine Kinase Troponin I < 0.03 Total Protein Albumin Triglycerides Cholesterol Total LDL Cholesterol HDL Cholesterol Urine Color Yellow Urine Appearance Slightly Urine pH 5.0 Ur Specific [place] <= 1.005 Urine Protein Negative Urine Glucose (UA) Negative Urine Ketones Negative Urine Blood Trace-lysed H Urine Nitrite Positive Urine Bilirubin Negative Urine Urobilinogen 0.2 Ur Leukocyte Esterase 2+ H Urine RBC 3-5 Urine WBC 50-80 Ur Epithelial Cells 3-5 Urine Bacteria Many Blood Type B POSITIVE Antibody Screen Negative 11/18/17 11/18/17 06:10 06:10 WBC 7.5 RBC 3.36 L Hgb 10.4 L Hct 31.3 L MCV 93.1 MCH 31.0 MCHC 33.3 RDW 15.1 Plt Count 199 MPV 9.0 Absolute Neuts (auto) Neutrophils % Lymphocytes % Monocytes % Eosinophils % Basophils % PT with INR INR Sodium 132 L Potassium 4.0 Chloride 102 Carbon Dioxide 26 Anion Gap 4 L BUN 21 H Creatinine 1.2 Creat Clearance w eGFR 42.60 Random Glucose 79 Calcium 8.7 Total Bilirubin 0.8 AST 13 ALT < 8 L D Alkaline Phosphatase 65 D Creatine Kinase Troponin I Total Protein 5.6 L Albumin 2.7 L Triglycerides Cholesterol Total LDL Cholesterol HDL Cholesterol Urine Color Urine Appearance Urine pH Ur Specific [place] Urine Protein Urine Glucose (UA) Urine Ketones Urine Blood Urine Nitrite Urine Bilirubin Urine Urobilinogen Ur Leukocyte Esterase Urine RBC Urine WBC Ur Epithelial Cells Urine Bacteria Blood Type Antibody Screen HOSPITAL COURSE: Date of Admission:11/17/17 Date of Discharge: 11/18/17 Discharge Summary Reason For Visit: MUSCLE WEAKNESS (GENERALIZED),URINARY TRACT INFECT Current Active Problems Left arm numbness (Acute) Left arm swelling (Acute) Left arm weakness (Acute) Condition: Good - Instructions Diet, Activity, Other Instructions: Saima Joseph: You have been ruled out for a stroke with both a Head CT and Brain MRI. Please follow up with Dr. Gray for left arm numbness and further workup for your left arm discomfort. New Medications: STOP taking the Aspirin and take Aggrenox 1 tablet on Sunday, Wednesdays and Fridays. Aggrenox was given to you on 11/17/2017. Lipitor 10mg daily for prevention of high cholesterol Your urine cultures are pending for any infection or UTI. We will call you if the urine is positive for bacteria. Please call me with any questions that you may have. [facility] [phone] Referrals: Chase Troy MD [Primary Care Provider] - Disposition: HOME - Home Medications Comprehensive Discharge Medication List: Ambulatory Orders Spironolactone 25 mg PO DAILY tablet 03/22/16 Escitalopram Oxalate [Lexapro -] 20 mg PO DAILY 11/17/17 Oxybutynin Chloride [Oxybutynin Chloride ER] 10 mg PO DAILY 11/17/17 Simvastatin [Zocor -] 20 mg PO HS 11/17/17 Aspirin/Dipyridamole [Aggrenox -] 1 combo PO DAILY #30 capsule 11/18/17 Atorvastatin Ca [Lipitor] 10 mg PO HS #30 tablet 11/18/17
[2017-11-20] MEDS ORDERED: ASPIRIN COATED 81 MG TABLET.EC PO SCH (10:00)
== END 2017-11-18 16:30 | disposition home or self-care (01) ==
LOC: FER 15:26 → FM/S 18:30
PROVIDERS: ADMIT Internal Medicine; ATTEND Nurse Practitioner Family
PROC: 3E03329 Introduction of Other Anti-infective into Peripheral Vein, Percutaneous Approach (ICD-10-PCS; principal; 2017-11-17)
PROC: 3E0337Z Introduction of Electrolytic and Water Balance Substance into Peripheral Vein, Percutaneous Approach (ICD-10-PCS; 2017-11-17)
DX: M62.81 Muscle weakness (generalized) (principal); R20.0 Anesthesia of skin; M79.89 Other specified soft tissue disorders; I10 Essential (primary) hypertension; E78.5 Hyperlipidemia, unspecified; Z86.718 Personal history of other venous thrombosis and embolism; Z79.82 Long term (current) use of aspirin
CPT/HCPCS: 36415; 70450-TC; 70551-TC; 71046-TC-FY; 80053; 81003; 81015; 82465; 82550; 83036; 83718; 83721; 84478; 84484; 85025; 85027; 85610; 86850; 86900; 86901; 87086; 87186; 93005; 93971; 99285-25; G0378; J7030

== ENCOUNTER 2019-07-05 19:18 | Inpatient (IN) | payer OTHER ==
[2019-07-05 19:26] VITALS: BMI 28.3
--- NOTE | 2019-07-05 20:07 | PDOC ---
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 Lives at [facility], [place]. Per daughter, was walking after dinner with a walker when after taking a few steps she had increased difficulty breathing, hyperventilation, sat down in her wheelchair, and passed out. No falls. No seizure like activity. No head trauma. No post-ictal state. Reports that she lost consciousness for around 6 seconds when she woke up again. Denies chest pain/dizziness prior to LOC. Denies abdominal pain. Denies dysuria. Reprots b/l LE swelling over the past week. PCP: Dr. Joshua Brown 07/06/19 00:19 Past History - Past Medical History Allergies/Adverse Reactions: Allergies Allergy/AdvReac Type Severity Reaction Status Date / Time No Known Allergies Allergy Verified 11/17/17 15:41 Home Medications: Ambulatory Orders Simvastatin [Zocor -] 20 mg PO HS 11/17/17 Acetaminophen [Tylenol] 650 mg PO QID PRN 07/05/19 Coenzyme Q-10 1 cap PO DAILY 07/05/19 Diclofenac Sodium [Diclofono] 2.5 gm TP Q6H 07/05/19 Duloxetine HCl 60 mg PO DAILY 07/05/19 Folic Acid 1 mg PO DAILY 07/05/19 Furosemide [Lasix -] 20 mg PO DAILY 07/05/19 Guaifenesin [Robitussin -] 10 ml PO QID PRN 07/05/19 Ipratropium/Albuterol Sulfate [Iprat-Albut 0.5-3(2.5) mg/3 ml] 3 ml IH Q4H PRN 07/05/19 Multivitamin 1 tab PO DAILY 07/05/19 Nystatin 100,000 unit PO TID 07/05/19 Ondansetron [Zofran *Odt*] 4 mg PO TID PRN 07/05/19 Oxybutynin Chloride [Oxybutynin Chloride ER] 5 mg PO DAILY 07/05/19 Saccharomyces Boulardii [Florastor] 250 mg PO TID 07/05/19 traMADol HCL [Ultram] 50 mg PO Q6H 07/05/19 Apixaban [Eliquis] 2.5 mg PO BID 07/06/19 Ubidecarenone [Co Q-10] 10 mg PO DAILY 07/06/19 Anemia: No Asthma: No Cancer: No Cardiac Disorders: No CVA: No COPD: No CHF: No DVT: Yes Dementia: No Diabetes: No GI Disorders: No Disorders: Yes (incontinence) HTN: Yes Hypercholesterolemia: Yes Liver Disease: No Seizures: No Thyroid Disease: No - Surgical History Abdominal Surgery: No Appendectomy: Yes Cardiac Surgery: No Cholecystectomy: No Lung Surgery: No Neurologic Surgery: No Orthopedic Surgery: No - Immunization History Immunization Up to Date: No - Psycho Social/Smoking Cessation Hx Smoking History: Never smoked Have you smoked in the past 12 months: No Cigars Per Day: 0 Hx Alcohol Use: No Drug/Substance Use Hx: No Substance Use Type: None Hx Substance Use Treatment: No Cardiac Specific PMH - Complaint Specific PMHX Pacemaker: No Review of Systems - Review of Systems Comments:: GENERAL/CONSTITUTIONAL: No fever or chills. No weakness._ HEAD, EYES, EARS, NOSE AND THROAT: No change in vision. No change in hearing. No sore throat._ CARDIOVASCULAR: No chest pain. Reports shortness of breath/MATHIS. RESPIRATORY: Denies cough, hemoptysis_ GASTROINTESTINAL: No nausea, vomiting, diarrhea or constipation._ GENITOURINARY: No dysuria, frequency, or change in urination._ MUSCULOSKELETAL: Reports bilateral lower extremity swelling. SKIN: No rash_ NEUROLOGIC: Reports LOC. No headache, vertigo, or change in strength/sensation._ ENDOCRINE: No increased thirst. No abnormal weight change_ HEMATOLOGIC/LYMPHATIC: No anemia, easy bleeding. Hx of b/l DVTs. ALLERGIC/IMMUNOLOGIC: No hives or skin allergy._ *Physical Exam - Vital Signs Last Vital Signs Temp Pulse Resp BP Pulse Ox 97.8 F 59 L 20 96/64 97 07/06/19 17:00 07/06/19 17:00 07/06/19 17:00 07/06/19 17:00 07/06/19 14:24 - Physical Exam GENERAL: Awake, alert, and oriented to person/place/time, in no acute distress_ HEAD: No signs of trauma, normocephalic, atraumatic _ EYES: PERRLA, EOMI, sclera anicteric, conjunctiva clear_ ENT: Hearing grossly normal, nares patent, oropharynx clear without exudates. No uvular deviation. Moist mucosa_ NECK: Normal ROM, supple, no lymphadenopathy, JVD, or masses_ LUNGS: No distress, speaks in full sentences, bibasilar crackles present. HEART: Regular rate and rhythm, normal S1 and S2, no murmurs appreciated, peripheral pulses normal and equal bilaterally._ ABDOMEN: Soft, nontender, normoactive bowel sounds. No guarding, no rebound. No masses_ EXTREMITIES: Normal inspection, Normal range of motion, 3+ bilateral lower extremity pitting edema. No clubbing or cyanosis_ NEUROLOGICAL: Cranial nerves II through XII grossly intact. Normal speech, no focal sensorimotor deficits. SKIN: Warm, Dry, normal turgor, no rashes or lesions noted_ ED Treatment Course - LABORATORY CBC & Chemistry Diagram: 07/06/19 05:38 07/06/19 05:38 - ADDITIONAL ORDERS Additional order review: 07/05/19 19:50 RBC 3.60 MCV 91.9 MCHC 32.5 RDW 19.2 H MPV 8.9 Neutrophils % 79.5 Lymphocytes % 12.4 Monocytes % 6.8 Eosinophils % 0.8 Basophils % 0.5 - RADIOLOGY Radiology Studies Ordered: Category Date Time Status HEAD CT WITHOUT CONTRAST [CT] Stat CT Scan 07/05/19 19:58 Completed CHEST X-RAY PORTABLE* [RAD] Stat Radiology 07/05/19 19:58 Completed - Medications Given in the ED: ED Medications Discontinued Medications Generic Name Dose Route Start Last Admin Trade Name Freq PRN Reason Stop Dose Admin Ondansetron HCl 4 mg 07/06/19 10:00 07/06/19 10:00 Zofran - PO Not Given Q8H [facility] Medical Decision Making - Medical Decision Making 07/05/19 20:00 89F hx of HTN, HLD, CHF, 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 -cbc, cmp, bnp, coags -ekg, trop, cxr -ct head -ua, ucx 07/05/19 20:07 EKG shows NSR, 69 bpm, no ST elevation/depression, QTc 435, no axis deviation. No change from prior November 2017. 07/05/19 20:25 Self read of cxr shows large hiatal hernia, cardiomegaly, mild bilateral pleural effusions. 07/05/19 21:21 Labs reviewed. Laboratory Last Values WBC 11.0 K/mm3 (4.0-10.0) H 07/05/19 19:50 RBC 3.60 M/mm3 (3.60-5.2) 07/05/19 19:50 Hgb 10.8 GM/dL (10.7-15.3) 07/05/19 19:50 Hct 33.1 % (32.4-45.2) 07/05/19 19:50 MCV 91.9 fl (80-96) 07/05/19 19:50 MCH 29.9 pg (25.7-33.7) 07/05/19 19:50 MCHC 32.5 g/dl (32.0-36.0) 07/05/19 19:50 RDW 19.2 % (11.6-15.6) H 07/05/19 19:50 Plt Count 257 K/MM3 (134-434) 07/05/19 19:50 MPV 8.9 fl (7.5-11.1) 07/05/19 19:50 Absolute Neuts (auto) 8.7 K/mm3 (1.5-8.0) H 07/05/19 19:50 Neutrophils % 79.5 % (42.8-82.8) 07/05/19 19:50 Lymphocytes % 12.4 % (8-40) 07/05/19 19:50 Monocytes % 6.8 % (3.8-10.2) 07/05/19 19:50 Eosinophils % 0.8 % (0-4.5) 07/05/19 19:50 Basophils % 0.5 % (0-2.0) 07/05/19 19:50 Nucleated RBC % 0 % (0-0) 07/05/19 19:50 PT with INR 14.10 SEC (9.7-13.0) H 07/05/19 19:50 INR 1.19 (0.83-1.09) H 07/05/19 19:50 PTT (Actin FS) 26.3 SECONDS (25.2-36.5) 07/05/19 19:50 Sodium 138 mmol/L (136-145) 07/05/19 19:50 Potassium 4.2 mmol/L (3.5-5.1) 07/05/19 19:50 Chloride 101 mmol/L (98-107) 07/05/19 19:50 Carbon Dioxide 31 mmol/L (21-32) 07/05/19 19:50 Anion Gap 5 MMOL/L (8-16) L 07/05/19 19:50 BUN 17.1 mg/dL (7-18) 07/05/19 19:50 Creatinine 1.0 mg/dL (0.55-1.3) 07/05/19 19:50 Est GFR (CKD-EPI)AfAm 58.25 07/05/19 19:50 Est GFR (CKD-EPI)NonAf 50.26 07/05/19 19:50 Random Glucose 111 mg/dL (74-106) H 07/05/19 19:50 Calcium 8.1 mg/dL (8.5-10.1) L 07/05/19 19:50 Total Bilirubin 0.3 mg/dL (0.2-1) 07/05/19 19:50 AST 16 U/L (15-37) 07/05/19 19:50 ALT 13 U/L (13-61) 07/05/19 19:50 Alkaline Phosphatase 100 U/L (45-117) 07/05/19 19:50 Creatine Kinase 12 U/L (26-192) L 07/05/19 19:50 Troponin I < 0.02 ng/ml (0.00-0.05) 07/05/19 19:50 B-Natriuretic Peptide 707.6 pg/ml (5-450) H 07/05/19 19:50 Total Protein 5.8 g/dl (6.4-8.2) L 07/05/19 19:50 Albumin 2.5 g/dl (3.4-5.0) L 07/05/19 19:50 07/05/19 21:27 UA reviewed. Urine Test Results Urine Color Yellow 07/05/19 21:11 Urine Appearance Cloudy 07/05/19 21:11 Urine pH 6.5 (5.0-8.0) 07/05/19 21:11 Ur Specific [place] 1.011 (1.010-1.035) 07/05/19 21:11 Urine Protein Negative (NEGATIVE) 07/05/19 21:11 Urine Glucose (UA) Negative (NEGATIVE) 07/05/19 21:11 Urine Ketones Negative (NEGATIVE) 07/05/19 21:11 Urine Blood Negative (NEGATIVE) 07/05/19 21:11 Urine Nitrite Negative (NEGATIVE) 07/05/19 21:11 Urine Bilirubin Negative (NEGATIVE) 07/05/19 21:11 Ur Leukocyte Esterase Trace (NEGATIVE) 07/05/19 21:11 07/06/19 00:07 Daughter - Juan: [phone] 07/06/19 00:22 CT head shows no acute intra cranial pathology. D/w Dr. Brown who accepts the patient for admission. Discharge - Discharge Information Problems reviewed: Yes Clinical Impression/Diagnosis: Syncope, CHF exacerbation Condition: Stable - Admission Yes - Follow up/Referral - Patient Discharge Instructions - Post Discharge Activity
--- NOTE | 2019-07-05 20:46 | PDOC ---
Documentation entered by Anna De Dios SCRIBE, acting as scribe for Marilyn Lemos DO. Marilyn Lemos DO: This documentation has been prepared by the Lanre mancia Xhesika, SCRIBE, under my direction and personally reviewed by me in its entirety. I confirm that the documentation accurately reflects all work, treatment, procedures, and medical decision making performed by me. Attending Attestation - Resident Resident Name: Matt Herman - ED Attending Attestation I have performed the following: I have examined & evaluated the patient, The case was reviewed & discussed with the resident, I agree w/resident's findings & plan - HPI HPI: 07/05/19 20:06 The patient is a 89 year old female, with a significant past medical history of HTN, DVT (on eliquis), HLD, and intracerebral hemorrhage s/p fall (May 2017 ) who presents to the emergency department s/p syncopal episode after eating dinner. Daughter denies any seizure activity. The patient denies chest pain or SOB. Denies fever, chills, cough, nausea, vomiting, diarrhea and constipation. Allergies: NKDA - Physicial Exam PE: 07/05/19 20:07 Agree with resident exam. - Medical Decision Making 07/06/19 00:45 89-year-old female status post syncopal episode after some mild shortness of breath CT scan of the brain showed no acute abnormality Will admit for observation
[2019-07-05 20:52] LABS: BASO % 0.5 % (0-2.0); EOS % 0.8 % (0-4.5); HEMATOCRIT 33.1 % (32.4-45.2); HEMOGLOBIN 10.8 GM/dL (10.7-15.3); LYMPH % 12.4 % (8-40); MCH 29.9 pg (25.7-33.7); MCHC 32.5 g/dl (32.0-36.0); MEAN CELL VOLUME 91.9 fl (80-96); MEAN PLT VOLUME 8.9 fl (7.5-11.1); MONO % 6.8 % (3.8-10.2); NEUT % 79.5 % (42.8-82.8); PLATELET COUNT 257 K/MM3 (134-434); RDW 19.2 % (11.6-15.6)
[2019-07-05 21:15] LABS: INR 1.19 (0.83-1.09); PROTHROMBIN TIME (PATIENT) 14.1 SEC (9.7-13.0)
[2019-07-05 21:18] LABS: ACTIVATED PTT 26.3 SECONDS (25.2-36.5)
[2019-07-05 21:19] LABS: ALBUMIN 2.5 g/dl (3.4-5.0); ALK PHOS 100 U/L (45-117); ANION GAP 5 MMOL/L (8-16); BILIRUBIN,TOTAL 0.3 mg/dL (0.2-1); BLOOD UREA NITROGEN 17.1 mg/dL (7-18); CALCIUM 8.1 mg/dL (8.5-10.1); CHLORIDE 101 mmol/L (98-107); CO2 31 mmol/L (21-32); GLUCOSE,RANDOM 111 mg/dL (74-106); POTASSIUM 4.2 mmol/L (3.5-5.1); SGOT/AST 16 U/L (15-37); SGPT/ALT 13 U/L (13-61); SODIUM 138 mmol/L (136-145); TOT PROT 5.8 g/dl (6.4-8.2)
[2019-07-05 21:26] LABS: EPI CELLS 30.6 /HPF (0-5/HPF); HYALINE CASTS 14 /lpf (0-8); PH,URINE 6.5 (5.0-8.0); URINE APPEARANCE CLOUDY; URINE BACTERIA 3.4 /hpf (NEGATIVE); URINE BILIRUBIN NEGATIVE (NEGATIVE); URINE COLOR YELLOW; URINE GLUCOSE (UA) NEGATIVE (NEGATIVE); URINE KETONE NEGATIVE (NEGATIVE); URINE LEUK ESTERASE TRACE (NEGATIVE); URINE NITRITE NEGATIVE (NEGATIVE); URINE PROTEIN NEGATIVE (NEGATIVE); URINE RBC 1 /hpf (0-4); URINE UROBILINOGEN 0.2 mg/dL (0.2-1.0); URINE WBC 5 /hpf (0-5)
[2019-07-06] MEDS ORDERED: guaiFENesin 200 MG/10 ML 10 ML UNIT-DOSE CUPS PO PRN (00:24)
[2019-07-06] MEDS ORDERED: ACETAMINOPHEN 325 MG TABLET (FP) PO PRN (00:24)
[2019-07-06] MEDS ORDERED: ALBUTEROL SO4 2.5/IPRATROPIUM 0.5 INH SOL 3 ML VIAL.NEB. NEB ONE (01:28)
[2019-07-06] MEDS ORDERED: ATORVASTATIN CA 20 MG TABLET (FP) ONE (01:29)
[2019-07-06] MEDS: ATORVASTATIN CA 20 MG TABLET (FP) PO SCH ×2 (02:31→21:41)
[2019-07-06] MEDS: ALBUTEROL SO4 2.5/IPRATROPIUM 0.5 INH SOL 3 ML VIAL.NEB. NEB SCH ×3 (02:31→20:20)
[2019-07-06] MEDS ORDERED: SACCHAROMYCES BOULARDII 250 MG PO SCH (06:00)
[2019-07-06 06:57] LABS: HEMATOCRIT 31.5 % (32.4-45.2); HEMOGLOBIN 10.6 GM/dL (10.7-15.3); MCH 30.8 pg (25.7-33.7); MCHC 33.6 g/dl (32.0-36.0); MEAN CELL VOLUME 91.6 fl (80-96); MEAN PLT VOLUME 8.6 fl (7.5-11.1); PLATELET COUNT 231 K/MM3 (134-434); RBC 3.44 M/mm3 (3.60-5.2); RDW 19.8 % (11.6-15.6); WHITE BLOOD COUNT 10.3 K/mm3 (4.0-10.0)
[2019-07-06] MEDS: NYSTATIN 500,000 UNITS/5 ML SUSPENSION PO SCH ×3 (07:30→21:41)
[2019-07-06 08:04] LABS: ALBUMIN 2.3 g/dl (3.4-5.0); ALK PHOS 96 U/L (45-117); ANION GAP 6 MMOL/L (8-16); BILIRUBIN,TOTAL 0.5 mg/dL (0.2-1); BLOOD UREA NITROGEN 15.6 mg/dL (7-18); CHLORIDE 104 mmol/L (98-107); CO2 30 mmol/L (21-32); CREATININE 0.8 mg/dL (0.55-1.3); GLUCOSE,RANDOM 83 mg/dL (74-106); POTASSIUM 3.5 mmol/L (3.5-5.1); SGOT/AST 18 U/L (15-37); SGPT/ALT 11 U/L (13-61); SODIUM 140 mmol/L (136-145); TOT PROT 5.6 g/dl (6.4-8.2)
[2019-07-06] MEDS: FOLIC ACID 1 MG TABLET (FP) PO SCH (09:05)
[2019-07-06] MEDS: PANTOPRAZOLE 40 MG TABLET PO SCH (09:06)
[2019-07-06] MEDS: MULTIVITAMINS (DAILY MVI) TABLET (FP) PO SCH (09:06)
[2019-07-06] MEDS ORDERED: FUROSEMIDE 20 MG TABLET (FP) PO SCH (10:00)
[2019-07-06] MEDS ORDERED: PATIENT'S OWN MEDICATION (NON-FORMULARY) (Multivitamin 1 TAB) PO SCH (10:00)
[2019-07-06] MEDS ORDERED: ONDANSETRON 4 MG TABLET PO SCH (10:00)
[2019-07-06] MEDS ORDERED: DULoxetine HCL 60 MG CAPSULE.DR PO SCH (10:00)
[2019-07-06] MEDS ORDERED: traMADol HCL 50 MG TABLET PO SCH (10:00)
[2019-07-06] MEDS ORDERED: FUROSEMIDE 40 MG TABLET (FP) ONE (10:01)
[2019-07-06] MEDS: APIXABAN 2.5 MG TABLET PO SCH ×2 (10:15→21:41)
--- NOTE | 2019-07-06 10:46 | CON.CARD ---
Consult Consult Specialty:: Cardiology Referred by:: Dr. Brown Reason for Consultation:: syncope - History of Present Illness Chief Complaint: Fell after getting up to walk History of Present Illness: 89F with hx b/l LE DVTS on Eliquis, dCHF, PHTN, CKD recent admission to [facility] for C.Diff, discharged home 06/29. She lives at [facility] and yesterday had syncopal episode after getting up from wheelchair and taking few steps with daughter. She felt very weak and SOB and then had episode LOC. Daughter witnessed, at bedside. No CP/ no pleuritic pain. No diarrhea/N/V No fevers. Head CT negative TnI negative. 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 No: Ascites, Cancer, Constipation, Crohn's Disease, Diverticulitis, Diverticulosis, Esophageal Varices, Gastritis, GERD, GI Bleed, Hemorrhoids, Hiatal Hernia, Inflamatory Bowel Disease, Irritable Bowel Disease, Pancreatitis, Peptic Ulcer Disease, Ulcerative Colitis Hepatobiliary: Yes: Cholelithiasis Renal/: Yes: Renal Inusuff Reproductive: No: Ectopic , Endometriosis, Fibroids, PID, Polycystic Ovary Syndrome, Postmenopausal, Other Heme/Onc: Yes: Other (DVTS b/l) Infectious Disease: Yes: C-Diff Psych: Yes: Anxiety Musculoskeletal: No: Bursitis, Chronic low back pain, Hemiparesis, Hemiplegia, Osteoarthritis, Paraplegia, Other Rheumatology: No: Fibromyalgia, Gout, Lupus, Rheumatoid Arthritis, Sarcoidosis, Vasculitis, Other ENT: No: Allergic Rhinitis, Sinusitis, Other Endocrine: No: Walter's Disease, Lola's Disease, Diabetes Insipidus, Diabetes Mellitus, Hyperparathyroidism, Hyperthyroidism, Hypothyroidism, Osteopenia, SIADH, Other - Alcohol/Substance Use Hx Alcohol Use: No - Smoking History Smoking history: Former smoker Have you smoked in the past 12 months: No - Social History Usual Living Arrangement: [facility] History of Recent Travel: No Home Medications - Allergies Allergies/Adverse Reactions: Allergies Allergy/AdvReac Type Severity Reaction Status Date / Time No Known Allergies Allergy Verified 11/17/17 15:41 - Home Medications Home Medications: Ambulatory Orders Simvastatin [Zocor -] 20 mg PO HS 11/17/17 Acetaminophen [Tylenol] 650 mg PO QID PRN 07/05/19 Coenzyme Q-10 1 cap PO DAILY 07/05/19 Diclofenac Sodium [Diclofono] 2.5 gm TP Q6H 07/05/19 Duloxetine HCl 60 mg PO DAILY 07/05/19 Folic Acid 1 mg PO DAILY 07/05/19 Furosemide [Lasix -] 20 mg PO DAILY 07/05/19 Guaifenesin [Robitussin -] 10 ml PO QID PRN 07/05/19 Ipratropium/Albuterol Sulfate [Iprat-Albut 0.5-3(2.5) mg/3 ml] 3 ml IH Q4H PRN 07/05/19 Multivitamin 1 tab PO DAILY 07/05/19 Nystatin 100,000 unit PO TID 07/05/19 Ondansetron [Zofran *Odt*] 4 mg PO TID PRN 07/05/19 Oxybutynin Chloride [Oxybutynin Chloride ER] 5 mg PO DAILY 07/05/19 Saccharomyces Boulardii [Florastor] 250 mg PO TID 07/05/19 traMADol HCL [Ultram] 50 mg PO Q6H 07/05/19 Apixaban [Eliquis] 2.5 mg PO BID 07/06/19 Ubidecarenone [Co Q-10] 10 mg PO DAILY 07/06/19 Family Medical History Family History: Unremarkable (not pertinent to this presentation) Review of Systems Findings/Remarks: seee HPI - Review of Systems Constitutional: reports: No Symptoms Eyes: reports: No Symptoms HENT: reports: No Symptoms Neck: reports: No Symptoms Cardiovascular: reports: Edema Respiratory: reports: No Symptoms Gastrointestinal: denies: No Symptoms, Abdominal Pain, Bloating, Constipation, Diarrhea, Dysphagia, Indigestion, Melena, Nausea, Rectal Bleeding, Vomiting, Vomiting Blood, Other Genitourinary: denies: No Symptoms, Burning, Discharge, Dysuria, Flank Pain, Frequency, Hematuria, Incontinence, Lesions, Menses, Pain, Testicular Mass, Testicular Pain, Testicular Swelling, Urgency, Vaginal Bleeding, Other Musculoskeletal: denies: No Symptoms, Back Pain, Crepitus, Decreased ROM, Extremity Pain, Joint Pain, Joint Swelling, Muscle Pain, Muscle Cramps, Muscle Weakness, Other Integumentary: denies: No Symptoms, Blister, Bruising, Change in Color, Eczema, Erythema, Incision, Lesions, Lump, Pallor, Pruritis, Rash, Wound, Other Neurological: reports: Syncope Endocrine: denies: No Symptoms, Excessive Sweating, Flushing, Increased Hunger, Increased Thirst, Intolerance to Cold, Intolerance to Heat, Unexplained Weight Gain, Unexplained Weight Loss, Other Hematology/Lymphatic: denies: No Symptoms, Easily Bruised, Excessive Bleeding, Swollen Glands, Other Psychiatric: denies: No Symptoms, Altered Sleep Pattern, Anxiety, Depression, Hallucinations, Panic, Paranoia, Suicidal, Other - Risk Factors Known Risk Factors: Yes: Age, Smoking Vital Signs: Vital Signs Temperature 98.1 F 07/05/19 19:24 Pulse Rate 70 07/06/19 07:02 Respiratory Rate 20 07/06/19 07:02 Blood Pressure 117/56 L 07/06/19 07:02 O2 Sat by Pulse Oximetry (%) 96 07/06/19 07:02 Constitutional: Yes: No Distress, Calm Eyes: Yes: Conjunctiva Clear Neck: Yes: Supple Respiratory: Yes: Other (scattered rhonchi, no wheezing or rales) Gastrointestinal: Yes: Soft, Abdomen, Obese (NONTENDER) Cardiovascular: Yes: Regular Rate and Rhythm JVD: No Carotid Bruit: No PMI: Non-Displaced Heart Sounds: Yes: S1, S2 Murmur: Yes: Systolic Murmur (2/6 RSB) Edema: Yes Edema: LLE: 2+, RLE: 2+ Neurological: Yes: Alert, Oriented - Other Data Labs, Other Data: CBC, BMP 07/06/19 05:38 07/06/19 05:38 INR, PTT INR 1.19 (0.83-1.09) H 07/05/19 19:50 Troponin, BNP 07/05/19 07/05/19 07/06/19 19:50 19:50 05:38 Troponin I < 0.02 < 0.02 B-Natriuretic Peptide 707.6 H Troponin, BNP 07/05/19 07/05/19 07/06/19 19:50 19:50 05:38 Troponin I < 0.02 < 0.02 B-Natriuretic Peptide 707.6 H see HPI Echo: Pending Imaging - Results Chest X-ray: Image Reviewed Cat Scan: Report Reviewed EKG: Image Reviewed Assessment/Plan IMP: Syncope Recent C. diff Bilateral LE DVTs- chronic Chronic dCHF PHTN CKD Hypoalbuminemia REC: 1. Syncope: -strongly suspect orthostatic drop in BP: recent prolonged diarrheal illness, poor PO intake -Doubt pulmonary embolism as pt on chronic AC/ no hypoxia or tachycardia/ TnI negative. CTA would likely not climate change risk assessor and would potentially compromise kidney function. -Check orthostatics. -May need gentle hydration -Telemetry to r/o arrhythmia -Echo for assessment EF and RVSP 2. Recent C. Diff: -As per PMD -Clinically appears dry (dry oropharynx, BUN also slightly elevated initially) 3. Chronic B/l DVTs: provoked from hospitalizations and immobility -On Eliquis, adjusted for age and GFR. As per daughter, CKD with creatinine fluctuation as high as 1.4/1.5 previously -Currently on reduced dose of 2.5mg BID, will follow trend of GFR and adjust maintenance dose accordingly 4. Chronic diastolic CHF: -BNP here mildly elevated. Does not appear to be clinically volume overloaded. -Suspect the BNP is probably chronically elevated to some degree on basis of chronic diastolic CHF/PHTN and CKD -Would not aggressively diurese, and would consider holding Lasix for 1-2 days as we check orthostatics -Her edema is probably multifactorial and secondary to diastolic dysfx/ possible right sided failure from PHTN and also from hypoalbuminemia and 3rd spacing. 5. PHTN: reported by daughter -Echo to assess as above. 6. CKD: -creat normal now, probably slightly pre-renal 7. Hypoalbuminemia: -Secondary to recent prolonged hospital stay for C. diff, poor PO intake. Contributing to edema -As per PMD
--- NOTE | 2019-07-06 12:08 | EKG ---
Test Reason : Blood Pressure : / mmHG Vent. Rate : 069 BPM Atrial Rate : 069 BPM P-R Int : 162 ms QRS Dur : 094 ms QT Int : 406 ms P-R-T Axes : 066 -29 034 degrees QTc Int : 435 ms POOR DATA QUALITY, INTERPRETATION MAY BE ADVERSELY AFFECTED NORMAL SINUS RHYTHM CANNOT RULE OUT ANTERIOR INFARCT , AGE UNDETERMINED ABNORMAL ECG WHEN COMPARED WITH ECG OF 17-NOV-2017 16:14, NO SIGNIFICANT CHANGE WAS FOUND Confirmed by CARMEN TO MD ([id number]) on 07/06/2019 12:07:33 PM Referred By: Confirmed By:CARMEN TO MD
--- NOTE | 2019-07-06 13:14 | HP ---
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 Daughter denies any seizure activity. The patient denies chest pain or SOB. Denies fever, chills, cough, nausea, vomiting, diarrhea and constipation. 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 No: Ascites, Cancer, Constipation, Crohn's Disease, Diverticulitis, Diverticulosis, Esophageal Varices, Gastritis, GERD, GI Bleed, Hemorrhoids, Hiatal Hernia, Inflamatory Bowel Disease, Irritable Bowel Disease, Pancreatitis, Peptic Ulcer Disease, Ulcerative Colitis Hepatobiliary: Yes: Cholelithiasis Renal/: Yes: Renal Inusuff Heme/Onc: Yes: Other (DVTS b/l) Infectious Disease: Yes: C-Diff Psych: Yes: Anxiety Musculoskeletal: No: Bursitis, Chronic low back pain, Hemiparesis, Hemiplegia, Osteoarthritis, Paraplegia, Other Rheumatology: No: Fibromyalgia, Gout, Lupus, Rheumatoid Arthritis, Sarcoidosis, Vasculitis, Other ENT: No: Allergic Rhinitis, Sinusitis, Other Endocrine: No: Weber's Disease, Watton's Disease, Diabetes Insipidus, Diabetes Mellitus, Hyperparathyroidism, Hyperthyroidism, Hypothyroidism, Osteopenia, SIADH, Other - Smoking History Smoking history: Former smoker Have you smoked in the past 12 months: No - Alcohol/Substance Use Hx Alcohol Use: No History of Substance Use: reports: None - Social History Usual Living Arrangement: Yes: Fpc ADL: Independent History of Recent Travel: No Home Medications - Allergies Allergies/Adverse Reactions: Allergies Allergy/AdvReac Type Severity Reaction Status Date / Time No Known Allergies Allergy Verified 11/17/17 15:41 - Home Medications Home Medications: Ambulatory Orders Simvastatin [Zocor -] 20 mg PO HS 11/17/17 Acetaminophen [Tylenol] 650 mg PO QID PRN 07/05/19 Coenzyme Q-10 1 cap PO DAILY 07/05/19 Diclofenac Sodium [Diclofono] 2.5 gm TP Q6H 07/05/19 Duloxetine HCl 60 mg PO DAILY 07/05/19 Folic Acid 1 mg PO DAILY 07/05/19 Furosemide [Lasix -] 20 mg PO DAILY 07/05/19 Guaifenesin [Robitussin -] 10 ml PO QID PRN 07/05/19 Ipratropium/Albuterol Sulfate [Iprat-Albut 0.5-3(2.5) mg/3 ml] 3 ml IH Q4H PRN 07/05/19 Multivitamin 1 tab PO DAILY 07/05/19 Nystatin 100,000 unit PO TID 07/05/19 Ondansetron [Zofran *Odt*] 4 mg PO TID PRN 07/05/19 Oxybutynin Chloride [Oxybutynin Chloride ER] 5 mg PO DAILY 07/05/19 Saccharomyces Boulardii [Florastor] 250 mg PO TID 07/05/19 traMADol HCL [Ultram] 50 mg PO Q6H 07/05/19 Apixaban [Eliquis] 2.5 mg PO BID 07/06/19 Ubidecarenone [Co Q-10] 10 mg PO DAILY 07/06/19 Family Medical History Family History: Unremarkable Review of Systems - Review of Systems Constitutional: denies: Chills, Fever, Lethargy Eyes: denies: Blind Spots, Blurred Vision, Double Vision HENT: denies: Difficult Swallowing, Ear Pain, Epistaxis Neck: denies: Stiffness, Tenderness Cardiovascular: denies: Chest Pain, Edema, Palpitations, Shortness of Breath Respiratory: denies: Cough, SOB, SOB on Exertion Gastrointestinal: denies: Abdominal Pain, Constipation, Diarrhea, Vomiting, Vomiting Blood Genitourinary: denies: Dysuria Musculoskeletal: denies: Back Pain, Joint Swelling Integumentary: denies: Blister, Bruising, Change in Color, Eczema Neurological: reports: Change in LOC, Dizziness, Syncope, Unsteady Gait, Weakness (general). denies: Change in Speech, Confusion, Headache, Pre- Existing Deficit, Seizure Endocrine: denies: Excessive Sweating, Flushing Hematology/Lymphatic: denies: Easily Bruised, Excessive Bleeding Psychiatric: denies: Altered Sleep Pattern, Anxiety, Depression, Suicidal Physical Examination Vital Signs: Vital Signs Temperature 98.1 F 07/05/19 19:24 Pulse Rate 70 07/06/19 07:02 Respiratory Rate 07/06/19 07:02 Blood Pressure 117/56 L 07/06/19 07:02 O2 Sat by Pulse Oximetry (%) 96 07/06/19 07:02 Constitutional: Yes: No Distress, Calm Eyes: Yes: Conjunctiva Clear HENT: Yes: Atraumatic Neck: Yes: Supple Cardiovascular: No: Regular Rate and Rhythm Respiratory: Yes: CTA Bilaterally Gastrointestinal: Yes: Soft. No: Tenderness Renal/: No: CVA Tenderness - Left, CVA Tenderness - Right, Hematuria Musculoskeletal: No: Joint Stiffness, Joint Swelling Extremities: No: Cold, Cool, Cyanosis Edema: No Integumentary: No: Rash, Venous Stasis Changes Neurological: Yes: Alert, Oriented ...Motor Strength: WNL Psychiatric: Yes: Alert, Oriented. No: Agitated, Suicidal Ideation Labs: CBC, BMP 07/06/19 05:38 07/06/19 05:38 Imaging - Results Chest X-ray: Report Reviewed Other: Report Reviewed Assessment/Plan The patient is a 89 year old female, with a significant past medical history of HTN, DVT (on eliquis), HLD, and intracerebral hemorrhage s/p fall (May 2017 ) who presents to the emergency department s/p syncopal episode after eating dinner. Seen in ER; pt denies any current c/o admit to telemetry falls PFX cardio and neuro eval carotid US; echo, holter further rec. to follow d/w pt and staff
[2019-07-06] MEDS: ONDANSETRON 4 MG TABLET PO SCH ×2 (15:03→21:44)
[2019-07-06] MEDS ORDERED: SODIUM CHLORIDE 1,000 ML IV SCH (15:30)
[2019-07-07] MEDS: ONDANSETRON 4 MG TABLET PO SCH ×3 (05:22→22:18)
[2019-07-07] MEDS: NYSTATIN 500,000 UNITS/5 ML SUSPENSION PO SCH ×3 (05:22→22:14)
[2019-07-07] MEDS ORDERED: traMADol HCL 50 MG TABLET PO PRN (06:43)
[2019-07-07 07:03] LABS: BASO % 0.9 % (0-2.0); EOS % 0.9 % (0-4.5); HEMOGLOBIN 9.4 GM/dL (10.7-15.3); MCH 30.5 pg (25.7-33.7); MCHC 33.6 g/dl (32.0-36.0); MEAN CELL VOLUME 90.8 fl (80-96); MEAN PLT VOLUME 8.9 fl (7.5-11.1); NEUT % 77.2 % (42.8-82.8); PLATELET COUNT 185 K/MM3 (134-434); RBC 3.09 M/mm3 (3.60-5.2); RDW 19.7 % (11.6-15.6)
[2019-07-07 07:48] LABS: ALK PHOS 89 U/L (45-117); ANION GAP 4 MMOL/L (8-16); BILIRUBIN,TOTAL 0.6 mg/dL (0.2-1); BLOOD UREA NITROGEN 12.8 mg/dL (7-18); CHLORIDE 104 mmol/L (98-107); CO2 31 mmol/L (21-32); CREATININE 0.9 mg/dL (0.55-1.3); GLUCOSE,RANDOM 86 mg/dL (74-106); IRON SERUM 43 ug/dL (50-175); POTASSIUM 3.7 mmol/L (3.5-5.1); SGOT/AST 13 U/L (15-37); SGPT/ALT 9 U/L (13-61); SODIUM 139 mmol/L (136-145)
[2019-07-07] MEDS: ALBUTEROL SO4 2.5/IPRATROPIUM 0.5 INH SOL 3 ML VIAL.NEB. NEB SCH ×2 (08:44→20:38)
--- NOTE | 2019-07-07 09:30 | PN ---
Progress Note, Physician Chief Complaint: in bed on 4W no recurrent syncope feels well; occ OA and anxiety consults reviewed and d/w pt - Current Medication List Current Medications: Active Medications Acetaminophen (Tylenol -) 650 mg PO QID PRN PRN Reason: PAIN 1-5 Albuterol/Ipratropium (Duoneb -) 1 amp NEB RBID [facility] Last Admin: 07/07/19 08:44 Dose: 1 amp Apixaban (Eliquis -) 2.5 mg PO BID [facility] Last Admin: 07/06/19 21:41 Dose: 2.5 mg Atorvastatin Calcium (Lipitor -) 20 mg PO HS [facility] Last Admin: 07/06/19 21:41 Dose: 20 mg Duloxetine HCl (Cymbalta -) 60 mg PO DAILY [facility] Folic Acid (Folic Acid -) 1 mg PO DAILY [facility] Last Admin: 07/06/19 09:05 Dose: 1 mg Furosemide (Lasix -) 20 mg PO DAILY [facility] Last Admin: 07/06/19 10:15 Dose: 20 mg Guaifenesin (Robitussin -) 10 ml PO QID PRN PRN Reason: COUGH Sodium Chloride (Normal Saline -) 1,000 mls @ 50 mls/hr IV ASDIR [facility] Stop: 07/07/19 15:29 Last Admin: 07/06/19 16:21 Dose: 50 mls/hr Metoprolol Succinate (Toprol Xl -) 50 mg PO DAILY [facility] Last Admin: 07/06/19 09:06 Dose: 50 mg Multivitamins/Minerals/Vitamin C (Tab-A-Vit -) 1 tab PO DAILY [facility] Last Admin: 07/06/19 09:06 Dose: 1 tab Non-Formulary Medication (Oxybutynin Chloride [Oxybutynin Chloride Er]) 5 mg PO DAILY [facility] Non-Formulary Medication (Saccharomyces Boulardii [Florastor]) 250 mg PO TID [facility] Nystatin (Nystatin Oral Suspension -) 500,000 units PO TID [facility] Last Admin: 07/07/19 05:22 Dose: 500,000 units Ondansetron HCl (Zofran -) 4 mg PO TID [facility] Last Admin: 07/07/19 05:22 Dose: Not Given Pantoprazole Sodium (Protonix -) 40 mg PO DAILY [facility] Last Admin: 07/06/19 09:06 Dose: 40 mg Tramadol HCl (Ultram -) 50 mg PO Q6H PRN PRN Reason: PAIN 6-10 Last Admin: 07/07/19 06:51 Dose: 50 mg - Objective Vital Signs: Vital Signs Temperature 98 F 07/07/19 08:52 Pulse Rate 81 07/07/19 08:52 Respiratory Rate 20 07/07/19 08:52 Blood Pressure 114/57 L 07/07/19 08:52 O2 Sat by Pulse Oximetry (%) 98 07/07/19 08:52 Constitutional: Yes: No Distress, Calm Eyes: Yes: Conjunctiva Clear HENT: Yes: Atraumatic Neck: Yes: Supple Cardiovascular: Yes: Regular Rate and Rhythm Respiratory: Yes: CTA Bilaterally Gastrointestinal: Yes: Soft. No: Tenderness Genitourinary: No: Hematuria Musculoskeletal: No: Joint Stiffness, Joint Swelling Extremities: No: Cold, Cool, Cyanosis Edema: No Integumentary: No: Pressure Ulcer, Rash, Venous Stasis Changes Neurological: Yes: WNL, Alert, Oriented ...Motor Strength: WNL Psychiatric: Yes: WNL, Alert, Oriented. No: Agitated, Suicidal Ideation Labs: CBC, BMP 07/07/19 06:10 07/07/19 06:10 INR, PTT INR 1.19 (0.83-1.09) H 07/05/19 19:50 - ....Imaging Other: Report Reviewed Assessment/Plan The patient is a 89 year old female, with a significant past medical history of HTN, DVT (on eliquis), HLD, and intracerebral hemorrhage s/p fall (May 2017 ) who presents to the emergency department s/p syncopal episode after eating dinner. Seen in ER; pt denies any current c/o monitor in telemetry falls PFX cardio and neuro eval carotid US; echo, holter d/w pt and staff
[2019-07-07] MEDS: MULTIVITAMINS (DAILY MVI) TABLET (FP) PO SCH (09:39)
[2019-07-07] MEDS: PANTOPRAZOLE 40 MG TABLET PO SCH (09:40)
[2019-07-07] MEDS: APIXABAN 2.5 MG TABLET PO SCH ×2 (09:40→22:14)
[2019-07-07] MEDS: DULoxetine HCL 30 MG CAPSULE.DR PO SCH (09:40)
[2019-07-07] MEDS: FOLIC ACID 1 MG TABLET (FP) PO SCH (09:40)
--- NOTE | 2019-07-07 11:21 | PN ---
Progress Note, Physician Chief Complaint: syncope History of Present Illness: denies LH, dizzy, presync incl when standing no signif leg swelling noted no sob no cp, palp - Current Medication List Current Medications: Active Medications Acetaminophen (Tylenol -) 650 mg PO QID PRN PRN Reason: PAIN 1-5 Albuterol/Ipratropium (Duoneb -) 1 amp NEB RBID [facility] Last Admin: 07/07/19 08:44 Dose: 1 amp Apixaban (Eliquis -) 2.5 mg PO BID [facility] Last Admin: 07/07/19 09:40 Dose: 2.5 mg Atorvastatin Calcium (Lipitor -) 20 mg PO HS [facility] Last Admin: 07/06/19 21:41 Dose: 20 mg Duloxetine HCl (Cymbalta -) 60 mg PO DAILY [facility] Last Admin: 07/07/19 09:40 Dose: 60 mg Folic Acid (Folic Acid -) 1 mg PO DAILY [facility] Last Admin: 07/07/19 09:40 Dose: 1 mg Furosemide (Lasix -) 20 mg PO DAILY [facility] Last Admin: 07/06/19 10:15 Dose: 20 mg Guaifenesin (Robitussin -) 10 ml PO QID PRN PRN Reason: COUGH Sodium Chloride (Normal Saline -) 1,000 mls @ 50 mls/hr IV ASDIR [facility] Stop: 07/07/19 15:29 Last Admin: 07/06/19 16:21 Dose: 50 mls/hr Metoprolol Succinate (Toprol Xl -) 50 mg PO DAILY [facility] Last Admin: 07/07/19 09:39 Dose: 50 mg Multivitamins/Minerals/Vitamin C (Tab-A-Vit -) 1 tab PO DAILY [facility] Last Admin: 07/07/19 09:39 Dose: 1 tab Non-Formulary Medication (Oxybutynin Chloride [Oxybutynin Chloride Er]) 5 mg PO DAILY [facility] Non-Formulary Medication (Saccharomyces Boulardii [Florastor]) 250 mg PO TID [facility] Nystatin (Nystatin Oral Suspension -) 500,000 units PO TID [facility] Last Admin: 07/07/19 05:22 Dose: 500,000 units Ondansetron HCl (Zofran -) 4 mg PO TID [facility] Last Admin: 07/07/19 05:22 Dose: Not Given Pantoprazole Sodium (Protonix -) 40 mg PO DAILY [facility] Last Admin: 07/07/19 09:40 Dose: 40 mg Tramadol HCl (Ultram -) 50 mg PO Q6H PRN PRN Reason: PAIN 6-10 Last Admin: 07/07/19 06:51 Dose: 50 mg - Objective Vital Signs: Vital Signs Temperature 98 F 07/07/19 08:52 Pulse Rate 81 07/07/19 08:52 Respiratory Rate 20 07/07/19 08:52 Blood Pressure 114/57 L 07/07/19 08:52 O2 Sat by Pulse Oximetry (%) 98 07/07/19 08:52 Constitutional: Yes: Well Nourished, No Distress, Calm Cardiovascular: Yes: Regular Rate and Rhythm, S1, S2. No: JVD, Gallop, Murmur Respiratory: Yes: Regular, CTA Bilaterally. No: Accessory Muscle Use, Rales Extremities: No: Cold Edema: Yes (mild-mod nonpitting) Neurological: Yes: Alert, Oriented Psychiatric: No: Agitated Labs: CBC, BMP 07/07/19 06:10 07/07/19 06:10 INR, PTT INR 1.19 (0.83-1.09) H 07/05/19 19:50 Assessment/Plan tele: IMP: Syncope Recent C. diff Bilateral LE DVTs- chronic Chronic dCHF PHTN CKD Hypoalbuminemia REC: Syncope: -strongly suspect orthostatic drop in BP: recent prolonged diarrheal illness, poor PO intake, elderly pt on lasix -+ orthostatic BP drop here -hold lasix, cont to monitor orthostatics -rec compression tx for venous insy, vascular surgery f/u (to minimize lasix reqt) -Telemetry to r/o arrhythmia -Echo for assessment EF and RVSP Recent C. Diff: -As per PMD -Clinically appears dry (dry oropharynx, BUN also slightly elevated initially) Chronic B/l DVTs: provoked from hospitalizations and immobility -On Eliquis--note recurrent VTE prevention dose is 2.5 bid--cont same Chronic diastolic CHF, edema -BNP here mildly elevated. Does not appear to be clinically volume overloaded. -Suspect the BNP is probably chronically elevated to some degree on basis of chronic diastolic CHF/PHTN and CKD -clinically euvolemic -Her edema is likely sec to chronic venous ins/post-phlebitic syndrome, ? component of diastolic dysfx/ possible right sided failure from PHTN -holding lasix, as above -if edema cannot be adequately treated with stockings, compression device by vascular, then will likely need trial of midodrine to minimize recurrent orthostatic hypo with syncope PHTN: reported by daughter -Echo to assess as above. Hypoalbuminemia: -Secondary to recent prolonged hospital stay for C. diff, poor PO intake. Contributing to edema -As per PMD D/C TELE
[2019-07-07] MEDS: OXYBUTYNIN CHLORIDE 5 MG TABLET PO SCH (14:32)
[2019-07-07] MEDS ORDERED: PT OWN MED DRAWER 7, Y5N ONE (14:32)
--- NOTE | 2019-07-07 15:09 | ECHO ---
Name: GRICELDA MIKE Exam:Adult Echocardiogram Study Date: 07/07/2019 01:27 PM Age: 89 yrs Reason For Study: SYNCOPE Height: 61 in Weight: 150 lb BSA: 1.7 m2 MMode/2D Measurements & Calculations IVSd: 0.86 cm Ao root diam: 2.3 cm LVIDd: 4.1 cm LA dimension: 3.4 cm LVIDs: 2.9 cm LVPWd: 1.1 cm LVPWs: 1.3 cm EDV(Teich): 73.1 ml ESV(Teich): 32.8 ml LVOT diam: 2.0 cm LAV (MOD-bp): 49.0 ml RV S Carlos: 11.6 cm/sec Doppler Measurements & Calculations MV E max carlos: 52.4 cm/sec Ao V2 max: 231.4 cm/sec MV A max carlos: 84.4 cm/sec Ao max P.4 mmHg MV E/A: 0.62 Ao V2 mean: 161.1 cm/sec Ao mean P.1 mmHg Ao V2 VTI: 58.3 cm JOSE G(I,D): 1.3 cm2 JOSE G(V,D): 1.3 cm2 LV V1 max P.8 mmHg SV(LVOT): 75.4 ml LV V1 mean P.4 mmHg LV V1 max: 98.0 cm/sec LV V1 mean: 72.8 cm/sec LV V1 VTI: 24.1 cm TR max carlos: 255.2 cm/sec PA V2 max: 156.1 cm/sec TR max P.6 mmHg PA max P.3 mmHg Med Peak E' Carlos: 6.4 cm/sec Med E/e': 8.2 Lat Peak E' Carlos: 6.6 cm/sec Lat E/e': 7.9 Procedure Study Quality: Fair. Left Ventricle The left ventricle is normal in size. There is normal left ventricular wall thickness. The left ventr icular ejection fraction is normal. Ejection Fraction = 55-60%. The transmitral spectral Doppler flow patter n is suggestive of impaired LV relaxation. Right Ventricle The right ventricle is moderately dilated. The right ventricular systolic function is moderately redu daisy. Atria Normal left and right atrial size and function. Mitral Valve The mitral valve leaflets appear normal. There is no evidence of stenosis, fluttering, or prolapse. Tricuspid Valve The tricuspid valve is not well visualized, but is grossly normal. There is mild tricuspid regurgitat ion. Right ventricular systolic pressure is normal. Aortic Valve Mildly calcified. Mild valvular aortic stenosis. No aortic regurgitation is present. Pulmonic Valve The pulmonic valve is not well visualized. Great Vessels The aortic root is normal size. Pericardium/Pleura There is no pericardial effusion. Interpretation Summary LV: Normal size,thickness,systolic function, EF 55-60%,impaired relaxation RV: Moderately dilated and hypoklinetic Normal atria sizes AV: Mildly calcified, mild stenosis Mild TR with normal RVSP. Mason Seay 07/07/2019 03:09 PM
--- NOTE | 2019-07-07 18:33 | CON.NEURO ---
Consult Consult Specialty:: Shai Referred by:: PCP Reason for Consultation:: Syncopy - History of Present Illness History of Present Illness: this is a pleasant 89-year-old right-handed female patient with multiple medical problem including coronary artery disease, mild dementia, cardiac arrhythmia, on anticoagulation patient was recently discharged from [facility] after a bout of diarrhea associated with C. difficile. No report of any recent travel patient was at the [facility] seen Tana when she had a syncopal event report of any seizure-like activity no chest pain or palpitation. Patient felt for. CAT scan of the head revealed no evidence of acute pathology patient was stabilized and admitted to the medical floor for further treatment and management. Patient was seen on the floor. 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 No: Ascites, Cancer, Constipation, Crohn's Disease, Diverticulitis, Diverticulosis, Esophageal Varices, Gastritis, GERD, GI Bleed, Hemorrhoids, Hiatal Hernia, Inflamatory Bowel Disease, Irritable Bowel Disease, Pancreatitis, Peptic Ulcer Disease, Ulcerative Colitis Hepatobiliary: Yes: Cholelithiasis Renal/: Yes: Renal Inusuff Infectious Disease: Yes: C-Diff Psych: Yes: Anxiety Musculoskeletal: No: Bursitis, Chronic low back pain, Hemiparesis, Hemiplegia, Osteoarthritis, Paraplegia, Other Rheumatology: No: Fibromyalgia, Gout, Lupus, Rheumatoid Arthritis, Sarcoidosis, Vasculitis, Other ENT: No: Allergic Rhinitis, Sinusitis, Other Endocrine: No: Allyn's Disease, Lola's Disease, Diabetes Insipidus, Diabetes Mellitus, Hyperparathyroidism, Hyperthyroidism, Hypothyroidism, Osteopenia, SIADH, Other - Alcohol/Substance Use Hx Alcohol Use: No - Smoking History Smoking history: Never smoked Have you smoked in the past 12 months: No - Social History Usual Living Arrangement: Group Home History of Recent Travel: No Home Medications - Allergies Allergies/Adverse Reactions: Allergies Allergy/AdvReac Type Severity Reaction Status Date / Time No Known Allergies Allergy Verified 07/14/18 15:41 - Home Medications Home Medications: Ambulatory Orders Simvastatin [Zocor -] 20 mg PO HS 11/17/17 Acetaminophen [Tylenol] 650 mg PO QID PRN 07/05/19 Coenzyme Q-10 1 cap PO DAILY 07/05/19 Diclofenac Sodium [Diclofono] 2.5 gm TP Q6H 07/05/19 Duloxetine HCl 60 mg PO DAILY 07/05/19 Folic Acid 1 mg PO DAILY 07/05/19 Furosemide [Lasix -] 20 mg PO DAILY 07/05/19 Guaifenesin [Robitussin -] 10 ml PO QID PRN 07/05/19 Ipratropium/Albuterol Sulfate [Iprat-Albut 0.5-3(2.5) mg/3 ml] 3 ml IH Q4H PRN 07/05/19 Multivitamin 1 tab PO DAILY 07/05/19 Nystatin 100,000 unit PO TID 07/05/19 Ondansetron [Zofran *Odt*] 4 mg PO TID PRN 07/05/19 Oxybutynin Chloride [Oxybutynin Chloride ER] 5 mg PO DAILY 07/05/19 Saccharomyces Boulardii [Florastor] 250 mg PO TID 07/05/19 traMADol HCL [Ultram] 50 mg PO Q6H 07/05/19 Apixaban [Eliquis] 2.5 mg PO BID 07/06/19 Ubidecarenone [Co Q-10] 10 mg PO DAILY 07/06/19 Family Medical History Family History: Unremarkable Review of Systems - Review of Systems Constitutional: reports: No Symptoms Eyes: reports: No Symptoms Neurological: reports: Headache, Incoordination, Numbness, Parasthesia Physical Exam-Neuro Vital Signs: Vital Signs Temperature 97.7 F 07/07/19 14:00 Pulse Rate 72 07/07/19 14:00 Respiratory Rate 20 07/07/19 14:00 Blood Pressure 108/49 L 07/07/19 14:00 O2 Sat by Pulse Oximetry (%) 98 07/07/19 08:52 Constitutional: Yes: Well Nourished Neck: Yes: WNL Cardiovascular: Yes: WNL Labs: CBC, BMP 07/07/19 06:10 07/07/19 06:10 INR, PTT INR 1.19 (0.83-1.09) H 07/05/19 19:50 - Neuro Exam Level Of Consciousness: Yes: Oriented to Person, Oriented to Place, Oriented to Time Eyes: Yes: PERRLA Speech: WNL Dominant Hand: Right Cranial Nerves II-XII Intact: Yes DTR's: 1+ Left Bicep, 1+ Right Bicep, 1+ Left Tricep, 1+ Right Tricep Response to light touch: Normal Response to pain prick: Normal Response to temperature: Normal Response to vibration: Normal Motor Strength: 3/5: Left Arm, Right Arm, Left Leg, Right Leg Gait: Deferred Imaging - Results Cat Scan: Image Reviewed Problem List - Problems (1) Syncope Code(s): R55 - SYNCOPE AND COLLAPSE Assessment/Plan most probably vasovagal syncope Cannot rule out cardiac arrhythmia 1. The results of the carotid Doppler. 2. Check orthostasis every shift. 3. Baby aspirin. 4. Homocysteine level. 4. No need for MRI. 5. Elastic stockings. Sarah Gibbons M.D., MSc [facility] [address] [place] [address] Office
[2019-07-07] MEDS: ATORVASTATIN CA 20 MG TABLET (FP) PO SCH (22:14)
[2019-07-08] MEDS: NYSTATIN 500,000 UNITS/5 ML SUSPENSION PO SCH ×3 (05:42→22:15)
[2019-07-08] MEDS: ONDANSETRON 4 MG TABLET PO SCH ×3 (05:50→22:17)
[2019-07-08] MEDS: ALBUTEROL SO4 2.5/IPRATROPIUM 0.5 INH SOL 3 ML VIAL.NEB. NEB SCH ×2 (07:41→21:25)
[2019-07-08] MEDS: FOLIC ACID 1 MG TABLET (FP) PO SCH (09:21)
[2019-07-08] MEDS: APIXABAN 2.5 MG TABLET PO SCH ×2 (09:21→22:17)
[2019-07-08] MEDS: PANTOPRAZOLE 40 MG TABLET PO SCH (09:21)
[2019-07-08] MEDS: DULoxetine HCL 30 MG CAPSULE.DR PO SCH (09:21)
[2019-07-08] MEDS: OXYBUTYNIN CHLORIDE 5 MG TABLET PO SCH (09:21)
[2019-07-08] MEDS: MULTIVITAMINS (DAILY MVI) TABLET (FP) PO SCH (09:21)
--- NOTE | 2019-07-08 11:19 | PN ---
Progress Note (short form) - Note Progress Note: s: has not gotten up much, no chest pain, palps, dizziness, dyspnea Current Medications Acetaminophen (Tylenol -) 650 mg PO QID PRN PRN Reason: PAIN 1-5 Albuterol/Ipratropium (Duoneb -) 1 amp NEB RBID [facility] Last Admin: 07/07/19 20:38 Dose: 1 amp Apixaban (Eliquis -) 2.5 mg PO BID [facility] Last Admin: 07/08/19 09:21 Dose: 2.5 mg Atorvastatin Calcium (Lipitor -) 20 mg PO HS [facility] Last Admin: 07/07/19 22:14 Dose: 20 mg Duloxetine HCl (Cymbalta -) 60 mg PO DAILY [facility] Last Admin: 07/08/19 09:21 Dose: 60 mg Folic Acid (Folic Acid -) 1 mg PO DAILY [facility] Last Admin: 07/08/19 09:21 Dose: 1 mg Guaifenesin (Robitussin -) 10 ml PO QID PRN PRN Reason: COUGH Metoprolol Succinate (Toprol Xl -) 50 mg PO DAILY [facility] Last Admin: 07/08/19 09:21 Dose: 50 mg Multivitamins/Minerals/Vitamin C (Tab-A-Vit -) 1 tab PO DAILY [facility] Last Admin: 07/08/19 09:21 Dose: 1 tab Non-Formulary Medication (Saccharomyces Boulardii [Florastor]) 250 mg PO TID [facility] Nystatin (Nystatin Oral Suspension -) 500,000 units PO TID [facility] Last Admin: 07/08/19 05:42 Dose: 500,000 units Ondansetron HCl (Zofran -) 4 mg PO TID [facility] Last Admin: 07/08/19 05:50 Dose: Not Given Oxybutynin Chloride (Ditropan -) 5 mg PO DAILY [facility] Last Admin: 07/08/19 09:21 Dose: 5 mg Pantoprazole Sodium (Protonix -) 40 mg PO DAILY [facility] Last Admin: 07/08/19 09:21 Dose: 40 mg Tramadol HCl (Ultram -) 50 mg PO Q6H PRN PRN Reason: PAIN 6-10 Last Admin: 07/07/19 06:51 Dose: 50 mg Vital Signs Period Temp Pulse Resp BP Sys/Smith Pulse Ox Last 24 Hr 97.7 F-98.8 F 67-115 20-20 102-127/49-61 99-100 Constitutional: Yes: Well Nourished, No Distress, Calm Cardiovascular: Yes: Regular Rate and Rhythm, S1, S2. No: JVD, Gallop, Murmur Respiratory: Yes: Regular, CTA Bilaterally. No: Accessory Muscle Use, Rales Extremities: No: Cold Edema: Yes (mild-mod nonpitting) Neurological: Yes: Alert, Oriented Psychiatric: No: Agitated no jaundice, diaphoresis echo 07/2019 nl LV function, mod dilated and hypokinetic RV, mild , mild TR Assessment/Plan IMP: Syncope Recent C. diff Bilateral LE DVTs- chronic Chronic dCHF PHTN CKD Hypoalbuminemia REC: Syncope: -strongly suspect orthostatic drop in BP: recent prolonged diarrheal illness, poor PO intake, elderly pt on lasix -+ orthostatic BP drop here - cont hold lasix, repeat orthostatics Recent C. Diff: -As per PMD -Clinically appears dry (dry oropharynx, BUN also slightly elevated initially) Chronic B/l DVTs: provoked from hospitalizations and immobility -On Eliquis--note recurrent VTE prevention dose is 2.5 bid--cont same Chronic diastolic CHF, edema -BNP here mildly elevated. Does not appear to be clinically volume overloaded. -Suspect the BNP is probably chronically elevated to some degree on basis of chronic diastolic CHF/PHTN and CKD -clinically euvolemic -Her edema is likely sec to chronic venous ins/post-phlebitic syndrome, ? component of diastolic dysfx/ possible right sided failure from PHTN -holding lasix, as above -if edema cannot be adequately treated with stockings, compression device by vascular, then will likely need trial of midodrine to minimize recurrent orthostatic hypo with syncope - repeat orthostatics today -rec compression tx for venous insy, vascular surgery f/u (to minimize lasix reqt) PHTN: reported by daughter -not noted on echo here Hypoalbuminemia: -Secondary to recent prolonged hospital stay for C. diff, poor PO intake. Contributing to edema -As per PMD
--- NOTE | 2019-07-08 12:55 | PN ---
Progress Note, Physician History of Present Illness: Pt w/o SOB, CP, palpitations, syncope, abd pain, diarrhea. - Current Medication List Current Medications: Active Medications Acetaminophen (Tylenol -) 650 mg PO QID PRN PRN Reason: PAIN 1-5 Albuterol/Ipratropium (Duoneb -) 1 amp NEB RBID [facility] Last Admin: 07/08/19 07:41 Dose: 1 amp Apixaban (Eliquis -) 2.5 mg PO BID [facility] Last Admin: 07/08/19 09:21 Dose: 2.5 mg Atorvastatin Calcium (Lipitor -) 20 mg PO HS [facility] Last Admin: 07/07/19 22:14 Dose: 20 mg Duloxetine HCl (Cymbalta -) 60 mg PO DAILY [facility] Last Admin: 07/08/19 09:21 Dose: 60 mg Folic Acid (Folic Acid -) 1 mg PO DAILY [facility] Last Admin: 07/08/19 09:21 Dose: 1 mg Guaifenesin (Robitussin -) 10 ml PO QID PRN PRN Reason: COUGH Metoprolol Succinate (Toprol Xl -) 50 mg PO DAILY [facility] Last Admin: 07/08/19 09:21 Dose: 50 mg Multivitamins/Minerals/Vitamin C (Tab-A-Vit -) 1 tab PO DAILY [facility] Last Admin: 07/08/19 09:21 Dose: 1 tab Non-Formulary Medication (Saccharomyces Boulardii [Florastor]) 250 mg PO TID [facility] Nystatin (Nystatin Oral Suspension -) 500,000 units PO TID [facility] Last Admin: 07/08/19 05:42 Dose: 500,000 units Ondansetron HCl (Zofran -) 4 mg PO TID [facility] Last Admin: 07/08/19 05:50 Dose: Not Given Oxybutynin Chloride (Ditropan -) 5 mg PO DAILY [facility] Last Admin: 07/08/19 09:21 Dose: 5 mg Pantoprazole Sodium (Protonix -) 40 mg PO DAILY [facility] Last Admin: 07/08/19 09:21 Dose: 40 mg Tramadol HCl (Ultram -) 50 mg PO Q6H PRN PRN Reason: PAIN 6-10 Last Admin: 07/07/19 06:51 Dose: 50 mg - Objective Vital Signs: Vital Signs Temperature 98.7 F 07/08/19 08:05 Pulse Rate 115 H 07/08/19 08:05 Respiratory Rate 20 07/08/19 08:05 Blood Pressure 114/52 L 07/08/19 08:05 O2 Sat by Pulse Oximetry (%) 100 07/08/19 08:05 Constitutional: Yes: No Distress, Calm Cardiovascular: Yes: Regular Rate and Rhythm, S1, S2 Respiratory: Yes: Regular, CTA Bilaterally. No: Rales Gastrointestinal: Yes: Normal Bowel Sounds, Soft. No: Tenderness Edema: LLE: 1+, RLE: 1+ Neurological: Yes: Alert, Oriented Labs: CBC, BMP 07/07/19 06:10 07/07/19 06:10 INR, PTT INR 1.19 (0.83-1.09) H 07/05/19 19:50 Problem List - Problems (1) Syncope Code(s): R55 - SYNCOPE AND COLLAPSE (2) Chronic CHF (congestive heart failure) Code(s): I50.9 - HEART FAILURE, UNSPECIFIED (3) Leg DVT (deep venous thromboembolism), chronic Code(s): I82.509 - CHRONIC EMBOLISM AND THOMBOS UNSP DEEP VN UNSP LOW EXTRM (4) CKD (chronic kidney disease) Code(s): N18.9 - CHRONIC KIDNEY DISEASE, UNSPECIFIED (5) C. difficile colitis Code(s): A04.72 - ENTEROCOLITIS D/T CLOSTRIDIUM DIFFICILE, NOT SPCF RECUR (6) Gallstones Code(s): K80.20 - CALCULUS OF GALLBLADDER W/O CHOLECYSTITIS W/O OBSTRUCTION Assessment/Plan To f/u orthostatic BP Cardio and Neuro consult are appreciated. To f/u electrolytes. Lasix is on hold. AM labs.
[2019-07-08] MEDS: ATORVASTATIN CA 20 MG TABLET (FP) PO SCH (22:17)
[2019-07-09] MEDS: NYSTATIN 500,000 UNITS/5 ML SUSPENSION PO SCH ×2 (05:26→14:40)
[2019-07-09] MEDS: ONDANSETRON 4 MG TABLET PO SCH (05:26)
[2019-07-09] MEDS: ALBUTEROL SO4 2.5/IPRATROPIUM 0.5 INH SOL 3 ML VIAL.NEB. NEB SCH (07:54)
[2019-07-09 08:00] LABS: HEMATOCRIT 27.1 % (32.4-45.2); HEMOGLOBIN 9.2 GM/dL (10.7-15.3); MCHC 33.9 g/dl (32.0-36.0); MEAN CELL VOLUME 91.4 fl (80-96); MEAN PLT VOLUME 8.9 fl (7.5-11.1); PLATELET COUNT 197 K/MM3 (134-434); RBC 2.96 M/mm3 (3.60-5.2); RDW 20.5 % (11.6-15.6); WHITE BLOOD COUNT 10.2 K/mm3 (4.0-10.0)
[2019-07-09 08:31] LABS: ALBUMIN 1.8 g/dl (3.4-5.0); BILIRUBIN,TOTAL 0.9 mg/dL (0.2-1); BLOOD UREA NITROGEN 10.4 mg/dL (7-18); CREATININE 0.8 mg/dL (0.55-1.3); TOT PROT 4.9 g/dl (6.4-8.2)
[2019-07-09] MEDS ORDERED: ONDANSETRON 4 MG TABLET PO PRN (08:47)
--- NOTE | 2019-07-09 08:49 | PN ---
Progress Note, Physician - Current Medication List Current Medications: Active Medications Acetaminophen (Tylenol -) 650 mg PO QID PRN PRN Reason: PAIN 1-5 Albuterol/Ipratropium (Duoneb -) 1 amp NEB RBID [facility] Last Admin: 07/08/19 21:25 Dose: 1 amp Apixaban (Eliquis -) 2.5 mg PO BID [facility] Last Admin: 07/08/19 22:17 Dose: 2.5 mg Atorvastatin Calcium (Lipitor -) 20 mg PO HS [facility] Last Admin: 07/08/19 22:17 Dose: 20 mg Duloxetine HCl (Cymbalta -) 60 mg PO DAILY [facility] Last Admin: 07/08/19 09:21 Dose: 60 mg Folic Acid (Folic Acid -) 1 mg PO DAILY [facility] Last Admin: 07/08/19 09:21 Dose: 1 mg Guaifenesin (Robitussin -) 10 ml PO QID PRN PRN Reason: COUGH Metoprolol Succinate (Toprol Xl -) 50 mg PO DAILY [facility] Last Admin: 07/08/19 09:21 Dose: 50 mg Multivitamins/Minerals/Vitamin C (Tab-A-Vit -) 1 tab PO DAILY [facility] Last Admin: 07/08/19 09:21 Dose: 1 tab Nystatin (Nystatin Oral Suspension -) 500,000 units PO TID [facility] Last Admin: 07/09/19 05:26 Dose: 500,000 units Ondansetron HCl (Zofran -) 4 mg PO TID PRN PRN Reason: NAUSEA AND/OR VOMITING Oxybutynin Chloride (Ditropan -) 5 mg PO DAILY [facility] Last Admin: 07/08/19 09:21 Dose: 5 mg Pantoprazole Sodium (Protonix -) 40 mg PO DAILY [facility] Last Admin: 07/08/19 09:21 Dose: 40 mg Tramadol HCl (Ultram -) 50 mg PO Q6H PRN PRN Reason: PAIN 6-10 Last Admin: 07/07/19 06:51 Dose: 50 mg - Objective Vital Signs: Vital Signs Temperature 98.2 F 07/09/19 08:31 Pulse Rate 64 07/09/19 08:31 Respiratory Rate 20 07/09/19 08:31 Blood Pressure 124/59 L 07/09/19 08:31 O2 Sat by Pulse Oximetry (%) 100 07/09/19 08:31 Labs: CBC, BMP 07/09/19 06:08 07/09/19 06:08 INR, PTT INR 1.19 (0.83-1.09) H 07/05/19 19:50
[2019-07-09] MEDS: MULTIVITAMINS (DAILY MVI) TABLET (FP) PO SCH (09:25)
[2019-07-09] MEDS: PANTOPRAZOLE 40 MG TABLET PO SCH (09:25)
[2019-07-09] MEDS: DULoxetine HCL 30 MG CAPSULE.DR PO SCH (09:25)
[2019-07-09] MEDS: OXYBUTYNIN CHLORIDE 5 MG TABLET PO SCH (09:25)
[2019-07-09] MEDS: FOLIC ACID 1 MG TABLET (FP) PO SCH (09:26)
[2019-07-09] MEDS: APIXABAN 2.5 MG TABLET PO SCH (09:26)
--- NOTE | 2019-07-09 11:19 | PN ---
Progress Note (short form) - Note Progress Note: s: no chest pain, palps, dizziness, dyspnea. was out of bed yesterday without dizziness. Current Medications Acetaminophen (Tylenol -) 650 mg PO QID PRN PRN Reason: PAIN 1-5 Albuterol/Ipratropium (Duoneb -) 1 amp NEB RBID [facility] Last Admin: 07/09/19 07:54 Dose: 1 amp Apixaban (Eliquis -) 2.5 mg PO BID [facility] Last Admin: 07/09/19 09:26 Dose: 2.5 mg Atorvastatin Calcium (Lipitor -) 20 mg PO HS [facility] Last Admin: 07/08/19 22:17 Dose: 20 mg Duloxetine HCl (Cymbalta -) 60 mg PO DAILY [facility] Last Admin: 07/09/19 09:25 Dose: 60 mg Folic Acid (Folic Acid -) 1 mg PO DAILY [facility] Last Admin: 07/09/19 09:26 Dose: 1 mg Guaifenesin (Robitussin -) 10 ml PO QID PRN PRN Reason: COUGH Metoprolol Succinate (Toprol Xl -) 50 mg PO DAILY [facility] Last Admin: 07/09/19 09:25 Dose: 50 mg Multivitamins/Minerals/Vitamin C (Tab-A-Vit -) 1 tab PO DAILY [facility] Last Admin: 07/09/19 09:25 Dose: 1 tab Nystatin (Nystatin Oral Suspension -) 500,000 units PO TID [facility] Last Admin: 07/09/19 05:26 Dose: 500,000 units Ondansetron HCl (Zofran -) 4 mg PO TID PRN PRN Reason: NAUSEA AND/OR VOMITING Oxybutynin Chloride (Ditropan -) 5 mg PO DAILY [facility] Last Admin: 07/09/19 09:25 Dose: 5 mg Pantoprazole Sodium (Protonix -) 40 mg PO DAILY [facility] Last Admin: 07/09/19 09:25 Dose: 40 mg Tramadol HCl (Ultram -) 50 mg PO Q6H PRN PRN Reason: PAIN 6-10 Last Admin: 07/07/19 06:51 Dose: 50 mg Vital Signs Period Temp Pulse Resp BP Sys/Smith Pulse Ox Last 24 Hr 98 F-99.1 F 64-70 20-20 107-127/52-68 100-100 Constitutional: Yes: Well Nourished, No Distress, Calm Cardiovascular: Yes: Regular Rate and Rhythm, S1, S2. No: JVD, Gallop, Murmur Respiratory: Yes: Regular, CTA Bilaterally. No: Accessory Muscle Use, Rales Extremities: No: Cold Edema: Yes (mild-mod nonpitting) Neurological: Yes: Alert, Oriented Psychiatric: No: Agitated no jaundice, diaphoresis echo 07/2019 nl LV function, mod dilated and hypokinetic RV, mild , mild TR Assessment/Plan IMP: Syncope Recent C. diff Bilateral LE DVTs- chronic Chronic dCHF PHTN CKD Hypoalbuminemia REC: Syncope: -strongly suspect orthostatic drop in BP: recent prolonged diarrheal illness, poor PO intake, elderly pt on lasix -+ orthostatic BP drop here - lasix dc'ed here, dizziness resolved - cont holding lasix, edema stable Recent C. Diff: -As per PMD -Clinically appears dry (dry oropharynx, BUN also slightly elevated initially) Chronic B/l DVTs: provoked from hospitalizations and immobility -On Eliquis--note recurrent VTE prevention dose is 2.5 bid--cont same Chronic diastolic CHF, edema -BNP here mildly elevated. Does not appear to be clinically volume overloaded. -Suspect the BNP is probably chronically elevated to some degree on basis of chronic diastolic CHF/PHTN and CKD -clinically euvolemic -Her edema is likely sec to chronic venous ins/post-phlebitic syndrome, ? component of diastolic dysfx/ possible right sided failure from PHTN -holding lasix, as above - edema stable off lasix -cont compression stockings, leg elevation PHTN: reported by daughter -not noted on echo here Hypoalbuminemia: -Secondary to recent prolonged hospital stay for C. diff, poor PO intake. Contributing to edema -As per PMD stable for dc from cardiac perspective
--- NOTE | 2019-07-09 12:56 | DS ---
Physical Examination Vital Signs: Vital Signs Temperature 98.2 F 07/09/19 08:31 Pulse Rate 64 07/09/19 08:31 Respiratory Rate 20 07/09/19 08:31 Blood Pressure 124/59 L 07/09/19 08:31 O2 Sat by Pulse Oximetry (%) 100 07/09/19 08:31 Findings/Remarks: feeling well no c/o dw cardio dr Pricila ROS[facility] has mild anemia said she saw dr Lauren Santiago few years ago had EGD colonoscopy told negative; said she has shreya with her in 1 month (her daughter made shreya) - to f/u with GI as advised also consider heme eval for anemia w/u and tx d/w cardio keep off lasix for now, f/u with cardio next week in office Constitutional: Yes: No Distress, Calm Eyes: Yes: Conjunctiva Clear HENT: Yes: Atraumatic Neck: Yes: Supple Cardiovascular: Yes: Regular Rate and Rhythm Respiratory: Yes: CTA Bilaterally Gastrointestinal: Yes: Soft. No: Tenderness Renal/: No: Hematuria Musculoskeletal: No: Joint Stiffness, Joint Swelling Extremities: No: Cold, Cool, Cyanosis Edema: Yes (pedal bilat) Integumentary: No: Rash, Venous Stasis Changes Neurological: Yes: Alert, Oriented ...Motor Strength: WNL Psychiatric: Yes: Alert, Oriented. No: Agitated, Suicidal Ideation Labs: CBC, BMP 07/09/19 06:08 07/09/19 06:08 Discharge Summary Problems reviewed: Yes Reason For Visit: SYNCOPE Current Active Problems C. difficile colitis (Acute) CHF exacerbation (Acute) CKD (chronic kidney disease) (Acute) Chronic CHF (congestive heart failure) (Acute) Gallstones (Acute) Leg DVT (deep venous thromboembolism), chronic (Acute) Syncope (Acute) Procedures: Principal: 89 YOF admitted with syncope Other Procedures: telemetry, cardiology and neurology eval;. lasix held ( borderline low BP) - pt stable; Hospital Course: improved and stable with above; mild anemia INDRA noted; pt to f/u with GI and consider heme outpt Condition: Stable - Instructions Disposition: RETIREMENT FACILITY - Home Medications Comprehensive Discharge Medication List: Ambulatory Orders Simvastatin [Zocor -] 20 mg PO HS 11/17/17 Acetaminophen [Tylenol] 650 mg PO QID PRN 07/05/19 Coenzyme Q-10 1 cap PO DAILY 07/05/19 Diclofenac Sodium [Diclofono] 2.5 gm TP Q6H 07/05/19 Duloxetine HCl 60 mg PO DAILY 07/05/19 Folic Acid 1 mg PO DAILY 07/05/19 Furosemide [Lasix -] 20 mg PO DAILY 07/05/19 Guaifenesin [Robitussin -] 10 ml PO QID PRN 07/05/19 Ipratropium/Albuterol Sulfate [Iprat-Albut 0.5-3(2.5) mg/3 ml] 3 ml IH Q4H PRN 07/05/19 Multivitamin 1 tab PO DAILY 07/05/19 Nystatin 100,000 unit PO TID 07/05/19 Ondansetron [Zofran *Odt*] 4 mg PO TID PRN 07/05/19 Oxybutynin Chloride [Oxybutynin Chloride ER] 5 mg PO DAILY 07/05/19 Saccharomyces Boulardii [Florastor] 250 mg PO TID 07/05/19 traMADol HCL [Ultram] 50 mg PO Q6H 07/05/19 Apixaban [Eliquis] 2.5 mg PO BID 07/06/19 Ubidecarenone [Co Q-10] 10 mg PO DAILY 07/06/19
[2019-07-09 13:57] VITALS: BP 118/63; PULSE 69; TEMP 98.9
== END 2019-07-09 14:42 | DRG 312 ==
LOC: JER 19:18 → JERBED 07-06 00:22 → J4W 07-06 14:33
PROVIDERS: ADMIT Specialist; ATTEND Specialist
DX: R55 Syncope and collapse (principal); I13.0 Hypertensive heart and chronic kidney disease with heart failure and stage 1 through stage 4 chronic kidney disease, or unspecified chronic kidney disease; I50.32 Chronic diastolic (congestive) heart failure; E78.5 Hyperlipidemia, unspecified; E88.09 Other disorders of plasma-protein metabolism, not elsewhere classified; N18.9 Chronic kidney disease, unspecified; D64.9 Anemia, unspecified; I27.20 Pulmonary hypertension, unspecified
CPT/HCPCS: 36415; 70450-TC; 71045-TC-FY; 80053; 81003; 82550; 82607; 82728; 83540; 83880; 84439; 84443; 84484; 85025; 85027; 85610; 85730; 87086; 93005; 93010; 93306-TC; 93880-TC; 94640; 97116-GP; 97161-GP; 99285-25; J7030